=== PATIENT | female | born 1960 | race Caucasian/White ===

== ENCOUNTER 2016-04-28 14:32 | Emergency (ER) | payer OTHER ==
[2016-04-28] MEDS ORDERED: TETANUS/DIPHTHERIA/PERTUSSIS 0.5 ML SYRINGE IM ONE ×2 (14:49→15:48)
== END 2016-04-28 16:05 | disposition home or self-care (01) ==
DX: F43.20 Adjustment disorder, unspecified (principal); S51.812A Laceration without foreign body of left forearm, initial encounter; X78.9XXA Intentional self-harm by unspecified sharp object, initial encounter; M27.69 Other endosseous dental implant failure; I10 Essential (primary) hypertension; F32.9 Major depressive disorder, single episode, unspecified; F41.9 Anxiety disorder, unspecified; F17.200 Nicotine dependence, unspecified, uncomplicated; Z81.8 Family history of other mental and behavioral disorders

== ENCOUNTER 2016-06-26 20:08 | Outpatient (CLI) | payer OTHER | END 2016-06-26 20:09 | disposition EMS.NT | DX: Z03.89 Encounter for observation for other suspected diseases and conditions ruled out (principal) ==

== ENCOUNTER 2016-06-29 15:51 | Outpatient (CLI) | payer OTHER | END 2016-06-29 15:52 | disposition critical access hospital (66) | DX: R26.81 Unsteadiness on feet (principal); R47.81 Slurred speech; R53.83 Other fatigue; R41.0 Disorientation, unspecified | CPT/HCPCS: A0425; A0427 ==

== ENCOUNTER 2016-06-29 16:19 | Emergency (ER) | payer OTHER ==
[2016-06-29] MEDS ORDERED: SODIUM CHLORIDE 0.9% 1,000 ML IV ONE (16:47)
[2016-06-29] MEDS ORDERED: POTASSIUM CHLORIDE 20 MEQ TABLET PO STA (17:50)
[2016-06-29] MEDS ORDERED: POTASSIUM CHLORIDE 20 MEQ TABLET PO ONE (18:56)
[2016-06-29] MEDS ORDERED: OLANZapine 10 MG VIAL IM STA ×2 (19:33→22:38)
[2016-06-29] MEDS ORDERED: OLANZapine 10 MG VIAL IM ONE ×2 (19:38→22:57)
[2016-06-29] MEDS ORDERED: WATER FOR INJECTION,STERILE 10 ML ONE ×2 (19:38→22:57)
== END 2016-06-30 17:05 | disposition home or self-care (01) ==
DX: F43.0 Acute stress reaction (principal); F91.8 Other conduct disorders; I10 Essential (primary) hypertension; F17.200 Nicotine dependence, unspecified, uncomplicated
CPT/HCPCS: 70450; 80053; 80306; 80307; 80320; 80329; 83690; 84443; 85025; 85610; 93005; 93010; 96372; 99284; 99285; A9270

== ENCOUNTER 2016-07-02 11:49 | Outpatient (CLI) | payer OTHER | END 2016-07-02 11:50 | disposition critical access hospital (66) | DX: R45.851 Suicidal ideations (principal) | CPT/HCPCS: A0425; A0429 ==

== ENCOUNTER 2016-07-02 12:16 | Emergency (ER) | payer OTHER ==
--- NOTE | 2016-07-02 12:29 | ED Physician Documentation ---
History of Present Illness - Stated complaint Stated Complaint: MHE - Additonal information Additional information: hx is incredibly sparse and EMS just picked pt up from [facility] [place] police on the side of the road and pt is having active psychosis and cannot answer any questions as best i can determine she was here 06/29-06/30 for suicidal ideation and OD seen by SW and then DCR cleared and dced home per EMS police told EMS that the told police that the pt tried to kill herself by jumping out of the car on the way home from the ER 2 days ago and also tried to hang herself because the voices told her to and has had violent erratic behavior EMS brings in a bag of pill bottles many of which are empty and other if which have a variety of different pills in them - unable to verify which if these meds pt is presently taking pt denies [employer] AP and is not vomiting or coughing in the ER, no report of physical injury from EMS Review of Systems Unable to obtain: AMS, Uncooperative PD PAST MEDICAL HISTORY - Past Medical History Cardiovascular: Hypertension Psych: Depression, Anxiety Musculoskeletal: Chronic back pain, Other - Past Surgical History Past Surgical History: Yes 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, 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, Breast implants Neuro: Other - Present Medications Home Medications: Ambulatory Orders Medication Instructions Recorded Confirmed Sertraline HCl [Zoloft] 100 mg PO DAILY 11/27/13 04/28/16 Atenolol 50 mg PO DAILY 11/06/14 04/28/16 Zolpidem Tartrate 10 mg PO .QHS 11/06/14 04/28/16 Estradiol 0 mg PO DAILY 10/08/15 04/28/16 Progesterone,Micronized 0 mg PO DAILY 10/08/15 04/28/16 [Progesterone] Lorazepam [Ativan] 1 mg PO TID PRN 04/28/16 04/28/16 Meloxicam [Mobic] 7.5 mg PO BIDWM PRN #15 tablet 04/28/16 Penicillin V Potassium 500 mg PO QID #40 tablet 04/28/16 - Allergies Allergies/Adverse Reactions: Allergies Allergy/AdvReac Type Severity Reaction Status Date / Time No Known Drug Allergies Allergy Verified 04/28/16 14:57 - Social History Does the pt smoke?: Yes Smoking Status: Current some day smoker Does the pt drink ETOH?: No Does the pt have substance abuse?: No - Immunizations Immunizations are current?: Yes - POLST Patient has POLST: No PD ED PE NORMAL - General General: No: Alert and oriented X 3 (awake tells me her name is seeing and speaking to people who are not present) - HEENT HEENT: Atraumatic, PERRL - Neck Neck: Supple, no meningeal sign - Cardiac Cardiac: RRR, No murmur - Respiratory Respiratory: No respiratory distress, Clear bilaterally - Abdomen Abdomen: Soft, Non tender - Derm Derm: Normal color - Extremities Extremities: No deformity - Neuro Neuro: No motor deficit. No: Alert and oriented X 3 - Psych Psych: Other (appears to be actively psycotic with visual and auditory ) Results - Vitals Vitals: Vital Signs - 24 hr 07/02/16 07/02/16 07/02/16 12:17 14:00 14:35 Temperature 36.8 C Heart Rate 84 82 78 Respiratory 16 16 16 Rate Blood Pressure 136/91 H 135/86 H O2 Saturation 97 97 97 Oxygen O2 Source Room air - Labs Labs: Laboratory Tests 07/02/16 07/02/16 07/02/16 12:55 12:55 15:30 WBC 8.6 RBC 4.20 Hgb 13.7 Hct 38.3 MCV 91.2 MCH 32.6 H MCHC 35.7 RDW 12.8 Plt Count 170 MPV 8.3 Neut # 5.9 Lymph # 1.8 Hawkins # 0.7 Eos # 0.2 Baso # 0.0 Absolute Nucleated RBC 0.00 Nucleated RBCs 0.0 Sodium 140 Potassium 3.3 L Chloride 101 Carbon Dioxide 29 Anion Gap 10.0 BUN 13 Creatinine 0.8 Estimated GFR (MDRD) 74 L Glucose 136 H Calcium 9.2 Total Bilirubin 0.5 AST 103 H ALT 49 Alkaline Phosphatase 63 Total Protein 7.3 Albumin 4.6 Globulin 2.7 Albumin/Globulin Ratio 1.7 Lipase 34 Urine Color YELLOW Urine Clarity CLEAR Urine pH 6.5 Ur Specific Engelhard 1.020 Urine Protein NEGATIVE Urine Glucose (UA) NEGATIVE Urine Ketones TRACE Urine Occult Blood MODERATE H Urine Nitrite NEGATIVE Urine Bilirubin NEGATIVE Urine Urobilinogen 0.2 (NORMAL) Ur Leukocyte Esterase NEGATIVE Urine RBC 6-10 H Urine WBC 0-3 Ur Squamous Epith Cells MOD Squamous H Urine Bacteria Few Urine Mucus Few Strands Ur Microscopic Review INDICATED Urine Culture Comments NOT INDICATED Salicylates < 6.0 Urine Opiates Screen NEGATIVE Ur Oxycodone Screen NEGATIVE Urine Methadone Screen NEGATIVE Ur Propoxyphene Screen NEGATIVE Acetaminophen < 10 L Ur Barbiturates Screen NEGATIVE Ur Tricyclics Screen NEGATIVE Ur Phencyclidine Scrn NEGATIVE Ur Amphetamine Screen NEGATIVE U Methamphetamines Scrn NEGATIVE U Benzodiazepines Scrn NEGATIVE Urine Cocaine Screen NEGATIVE U Cannabinoids Screen NEGATIVE Ethyl Alcohol < 5.0 PD MEDICAL DECISION MAKING - ED course ED course: pt psychotic and agitated and would not stay in her room and was medicated with zyprexa for her safety - advised NATALY who was going to eval her prior to medication so she could see her before meds took effect pt was seepy for a while after the zyprexa but has recovered and is back to the way she was upon arrival - confused, apparently seeing hearing things, disoriented and uncooperative because she cannot follow commands also after the zyprexa pt was calm enough top be put on the heart monitor and she has a borderline prolonged QT though still < 1/2 R->R - would not recommend any further zyprexa for that reason in this state pt does not have the capacity to req or decline further care - she is not able to request voluntary mental health care because she is unable to make such a decision in this state, I feel she is gravely disabled and well as having had two recent suicide attempts since her dc form the ER two days ago , I believe she needs to be invol detained and receive much needed inpt psych care, NATALY Gonsalez called [facility] to have DCR dispatched 8 PM, pt being seen and evaluated by DCR - turned over to night EMP - advised to not give QT prolonging meds Departure - Departure Clinical Impression: Gravely disabled, Prolonged QT interval Psychosis Qualifiers: Psychosis type: other Qualified Code(s): F28 - Other psychotic disorder not due to a substance or known physiological condition Condition: Fair
[2016-07-02 13:01] LABS: BASOPHILS % (AUTO) 0.5 %; EOSINOPHILS # (AUTO) 0.2 10^3/uL (0.0-0.7); EOSINOPHILS % (AUTO) 1.8 %; HCT - HEMATOCRIT 38.3 % (37.0-47.0); HGB - HEMOGLOBIN 13.7 g/dL (12.0-16.0); LYMPHOCYTES # (AUTO) 1.8 10^3/uL (1.5-3.5); LYMPHOCYTES % (AUTO) 20.7 %; MEAN CORPUSCULAR HEMOGLOBIN 32.6 pg (27.0-31.0); MEAN CORPUSCULAR HGB CONC 35.7 g/dL (32.0-36.0); MEAN CORPUSCULAR VOLUME 91.2 fL (81.0-99.0); MEAN PLATELET VOLUME 8.3 fL (7.9-10.8); MONOCYTES # (AUTO) 0.7 10^3/uL (0.0-1.0); MONOCYTES % (AUTO) 8.1 %; NEUTROPHILS # (AUTO) 5.9 10^3/uL (1.5-6.6); NEUTROPHILS % (AUTO) 68.9 %; RED CELL DISTRIBUTION WIDTH 12.8 % (12.0-15.0); UNCORRECTED WHITE BLOOD COUNT 8.6 x10^3/uL; WHITE BLOOD COUNT 8.6 x10^3/uL (4.8-10.8)
[2016-07-02 13:18] LABS: ALBUMIN/GLOBULIN RATIO 1.7 (1.0-2.2); BILIRUBIN,TOTAL 0.5 mg/dL (0.2-1.0); BUN - BLOOD UREA NITROGEN 13 mg/dL (6-20); CALCIUM 9.2 mg/dL (8.5-10.3); CARBON DIOXIDE - CO2 29 mmol/L (21-32); CHLORIDE 101 mmol/L (101-111); CREATININE 0.8 mg/dL (0.4-1.0); GFR - MDRD 74 (>89); GLUCOSE 136 mg/dL (70-100); LIPASE 34 U/L (22-51); POTASSIUM 3.3 mmol/L (3.5-5.0); SALICYLATE < 6.0 mg/dL; SODIUM 140 mmol/L (135-145); TOTAL PROTEIN 7.3 g/dL (6.7-8.2)
[2016-07-02 13:19] LABS: ACETAMINOPHEN < 10 ug/mL (10-30)
[2016-07-02] MEDS ORDERED: OLANZapine ODT 5 MG TABLET TL ONE (13:30)
[2016-07-02] MEDS ORDERED: WATER FOR INJECTION,STERILE 10 ML ONE (13:33)
[2016-07-02] MEDS ORDERED: OLANZapine 10 MG VIAL IM ONE (13:33)
[2016-07-02] MEDS: OLANZapine ODT 5 MG TABLET TL ONE (13:39)
[2016-07-02] MEDS: OLANZapine 10 MG VIAL IM STA (13:39)
[2016-07-02 15:42] LABS: PH,URINE 6.5 PH (5.0-7.5)
[2016-07-02 15:46] LABS: UA w/ MICROSCOPIC CHARGE YES
[2016-07-02 15:47] LABS: BILIRUBIN,URINE NEGATIVE (NEGATIVE)
[2016-07-02 15:57] LABS: UR CULTURE IF IND NOT INDICATED; WBC,URINE 0-3 /HPF (0-5)
[2016-07-02 23:46] VITALS: BP 158/105
--- NOTE | 2016-07-02 23:54 | ED Physician Documentation ---
ED Addendum - Addendum Addendum: 07/02/16 23:53 Patient is a 55-year-old female with acute psychosis. She was evaluated by the [facility] Gloria Guevara and was placed on an involuntary hold. A bed was found at [facility] in [place]. Accepted by [facility] at 2340. COBRA forms filled out. This document was made in part using voice recognition software. While efforts are made to proofread this document, sound alike and grammatical errors may occur. 07/02/16 23:54 Departure - Departure Disposition: 02 Transfer Acute Care Hosp Clinical Impression: Gravely disabled, Prolonged QT interval Psychosis Qualifiers: Psychosis type: other Qualified Code(s): F28 - Other psychotic disorder not due to a substance or known physiological condition Condition: Fair
== END 2016-07-03 01:35 ==
LOC: EDUNIT# → ED 12:16
DX: F28 Other psychotic disorder not due to a substance or known physiological condition (principal); I45.81 Long QT syndrome; I10 Essential (primary) hypertension; F41.9 Anxiety disorder, unspecified; F17.200 Nicotine dependence, unspecified, uncomplicated
CPT/HCPCS: 36415; 80053; 80306; 80307; 80320; 80329; 81001; 81003; 83690; 85025; 87086; 96372; 99284; 99285

== ENCOUNTER 2016-07-03 01:34 | Outpatient (CLI) | payer OTHER | END 2016-07-03 01:35 | DX: R45.851 Suicidal ideations (principal) | CPT/HCPCS: A0425; A0428 ==

== ENCOUNTER 2016-07-28 13:13 | Outpatient (CLI) | payer OTHER ==
[2016-07-28 18:36] LABS: CHOL/HDL RATIO 4.1 (<4.4); CHOLESTEROL 244 mg/dL; HDL CHOLESTEROL 59 mg/dL; LDL/HDL RATIO 2.4 (<4.4); TRIGLYCERIDES 231 mg/dL; VLDL CHOLESTEROL 46 mg/dL
== END 2016-07-28 13:14 | disposition home or self-care (01) ==
LOC: LAB.F 13:13
PROVIDERS: ATTEND Internal Medicine
DX: E78.00 Pure hypercholesterolemia, unspecified (principal)
CPT/HCPCS: 36415; 80061

== ENCOUNTER 2016-09-04 14:15 | Outpatient (CLI) | payer OTHER ==
[2016-09-04 17:29] LABS: BASOPHILS % (AUTO) 0.4 %; EOSINOPHILS # (AUTO) 0.4 10^3/uL (0.0-0.7); EOSINOPHILS % (AUTO) 5.2 %; LYMPHOCYTES # (AUTO) 2.7 10^3/uL (1.5-3.5); LYMPHOCYTES % (AUTO) 37.1 %; MEAN CORPUSCULAR HEMOGLOBIN 32.7 pg (27.0-31.0); MEAN CORPUSCULAR HGB CONC 34.1 g/dL (32.0-36.0); MEAN PLATELET VOLUME 9.1 fL (7.9-10.8); MONOCYTES # (AUTO) 0.5 10^3/uL (0.0-1.0); MONOCYTES % (AUTO) 6.9 %; NEUTROPHILS # (AUTO) 3.7 10^3/uL (1.5-6.6); NEUTROPHILS % (AUTO) 50.4 %; RED BLOOD COUNT 4.27 10^6/uL (4.20-5.40); RED CELL DISTRIBUTION WIDTH 13.1 % (12.0-15.0); UNCORRECTED WHITE BLOOD COUNT 7.4 x10^3/uL; WHITE BLOOD COUNT 7.4 x10^3/uL (4.8-10.8)
[2016-09-04 17:43] LABS: ALBUMIN/GLOBULIN RATIO 1.5 (1.0-2.2); BILIRUBIN,TOTAL 0.3 mg/dL (0.2-1.0); BUN - BLOOD UREA NITROGEN 19 mg/dL (6-20); CALCIUM 9.2 mg/dL (8.5-10.3); CARBON DIOXIDE - CO2 25 mmol/L (21-32); CHLORIDE 106 mmol/L (101-111); CREATININE 0.7 mg/dL (0.4-1.0); GFR - MDRD 87 (>89); GLUCOSE 96 mg/dL (70-100); POTASSIUM 3.8 mmol/L (3.5-5.0); SODIUM 139 mmol/L (135-145); TOTAL PROTEIN 6.9 g/dL (6.7-8.2)
[2016-09-04 19:53] LABS: BILIRUBIN,URINE NEGATIVE (NEGATIVE); PH,URINE 5.5 PH (5.0-7.5)
[2016-09-04 20:07] LABS: UR CULTURE IF IND NOT INDICATED; WBC,URINE 0-3 /HPF (0-5)
== END 2016-09-04 14:16 | disposition home or self-care (01) ==
LOC: LAB.F 14:15
PROVIDERS: ATTEND Internal Medicine
DX: R10.9 Unspecified abdominal pain (principal)
CPT/HCPCS: 36415; 80053; 81001; 84443; 85025; 87086

== ENCOUNTER 2016-09-07 15:34 | Outpatient (CLI) | payer OTHER ==
--- NOTE | 2016-09-08 21:27 | Mammography Report ---
DIGITAL SCREENING MAMMOGRAM: (11/26/2015): CLINICAL INDICATION: A 55-year-old with history of bilateral implants for screening. COMPARISON: 05/2014, 05/2012, 01/2010. TECHNIQUE: Routine CC and MLO projections as well as bilateral implant displaced views were obtained of the breasts. The breasts again demonstrate heterogeneously dense fibroglandular parenchyma bilaterally. Bilateral subglandular silicone implants are present. A few coarse, typically benign calcifications are prese nt. There is new nodular hyperdense material extending superior and medial from the left implant, co mpatible with rupture and silicone extravasation. No suspicious masses, clustered microcalcification s, or regions of architectural distortion are identified. IMPRESSION: BENIGN FINDINGS. NEW LEFT IMPLANT RUPTURE WITH EXTRAVASATED SILICONE. RECOMMENDATION: ROUTINE ANNUAL SCREENING UNLESS OTHERWISE CLINICALLY INDICATED. PLASTIC SURGERY CON SULTATION. BIRADS CATEGORY: 2, BENIGN FINDINGS. STANDARD QUALIFYING STATEMENTS 1. This examination was reviewed with the aid of Computed-Aided Detection (CAD). 2. A negative or benign imaging report should not delay biopsy if clinically suspicious findings are present. Consider surgical consultation if warranted. More than 5% of cancers are not identified b y imaging. 3. Dense breasts may obscure an underlying neoplasm. JOB #: [id number] EXT JOB #:[id number]
== END 2016-09-07 15:35 | disposition home or self-care (01) ==
LOC: DI 15:34
PROVIDERS: ATTEND Internal Medicine
DX: Z12.31 Encounter for screening mammogram for malignant neoplasm of breast (principal); T85.43XA Leakage of breast prosthesis and implant, initial encounter; Z98.82 Breast implant status
CPT/HCPCS: 77067

== ENCOUNTER 2016-09-07 15:39 | Outpatient (CLI) | payer OTHER ==
--- NOTE | 2016-09-07 21:11 | XRAY Report ---
EXAM: CHEST RADIOGRAPHY EXAM DATE: 09/07/2016 04:53 PM. CLINICAL HISTORY: Abdominal pain and distention. Hematuria. COMPARISON: 01/06/2015. TECHNIQUE: 2 views. FINDINGS: Lungs/Pleura: No focal opacities evident. No pleural effusion. No pneumothorax. Normal volumes. Mediastinum: Heart and mediastinal contours are unremarkable. Other: No free air. No bony abnormality identified. IMPRESSION: Normal 2-view chest radiography. [facility] Referring Provider Line: [phone] SITE ID: [id number]
--- NOTE | 2016-09-07 21:11 | XRAY Report ---
EXAM: ABDOMINAL SERIES AND PA CHEST EXAM DATE: 09/07/2016 04:53 PM. CLINICAL HISTORY: Abdominal pain and distention. COMPARISON: None. TECHNIQUE: 2 views abdomen and 1 view chest. FINDINGS: CHEST: Lungs/Pleura: No focal opacities. No effusion or pneumothorax. Mediastinum: Within exam limitations, cardiomediastinal contour is normal. ABDOMEN: Bowel Gas Pattern: Within normal limits. No dilated loops or abnormal fluid levels. No excessive sto ol. Free Air: None. Other: Multiple pelvic clips noted. Degenerative changes of the symphysis pubis noted. Mild lumbar de xtroscoliosis with lower lumbar degenerative changes. IMPRESSION: No bowel obstruction, excessive stool, or free air. [facility] Referring Provider Line: [phone] SITE ID: [id number]
== END 2016-09-07 15:40 | disposition home or self-care (01) ==
LOC: DI 15:39
PROVIDERS: ATTEND Internal Medicine
DX: R06.00 Dyspnea, unspecified (principal); R14.0 Abdominal distension (gaseous); R10.9 Unspecified abdominal pain
CPT/HCPCS: 71020; 74022

== ENCOUNTER 2017-03-19 13:33 | Outpatient (CLI) | payer OTHER ==
--- NOTE | 2017-03-19 17:50 | XRAY Report ---
DATE OF SERVICE: 03/19/2017 THREE VIEW LEFT SHOULDER: 03/19/2017 CLINICAL INDICATION: Pain. FINDINGS: Frontal, oblique, scapular Y views of the left shoulder demonstrate mild degenerative changes of the acromioclavicular joint. There is no evidence of acute fracture or dislocation. No radiopaque foreign body is seen in the soft tissues. IMPRESSION: MILD DEGENERATIVE CHANGES OF THE ACROMIOCLAVICULAR JOINT. TD: 03/19/2017 18:50
== END 2017-03-19 13:34 | disposition home or self-care (01) ==
LOC: DI 13:33
PROVIDERS: ATTEND Physician Assistant Medical
DX: M19.012 Primary osteoarthritis, left shoulder (principal)

== ENCOUNTER 2017-04-05 09:03 | Outpatient (CLI) | payer OTHER ==
[~2017-04-05 09:03] MED LIST: GADOPENTETATE DIMEGLUMINE 5 ML VIAL IVP ONE; IOTHALAMATE MEGLUMINE 50 ML VIAL ONE
[2017-04-05] MEDS ORDERED: GADOPENTETATE DIMEGLUMINE 5 ML VIAL IVP ONE (09:55)
[2017-04-05] MEDS ORDERED: IOTHALAMATE MEGLUMINE 50 ML VIAL IVP ONE (09:55)
[2017-04-05] MEDS: BUFFERED LIDOCAINE 10 ML SYRINGE IU ONE (09:57)
--- NOTE | 2017-04-05 10:41 | XRAY Report ---
DATE OF SERVICE: 04/05/2017 FLUOROSCOPICALLY GUIDED INJECTION OF THE LEFT SHOULDER FOR MR ARTHROGRAM: 04/05 CLINICAL INDICATION: Shoulder pain. FINDINGS: Following obtaining informed consent, the patient's left shoulder was prepped and draped in the usual sterile fashion. The skin and soft tissues were anesthetized with lidocaine. A spinal needle was inserted into the left glenohumeral joint, and following confirmation of needle positioning, a combination of iodinated contrast, dilute gadolinium, and lidocaine was injected intraarticularly. The patient tolerated the procedure well. No immediate complications. Spot image reveals no evidence of contrast extravasation. IMPRESSION: SUCCESSFUL LEFT SHOULDER INJECTION FOR MR ARTHROGRAM. FLUOROSCOPY TIME: 39 SECONDS; 1 SPOT IMAGE OBTAINED. TD: 04/05/2017 10:36 YOGI
--- NOTE | 2017-04-05 12:55 | MRI Report ---
EXAM: LEFT SHOULDER MRI ARTHROGRAM WITH CONTRAST EXAM DATE: 04/05/2017 10:24 AM. CLINICAL HISTORY: Shoulder joint pain, left. COMPARISON: None. TECHNIQUE: Multiplanar, multisequence T1-weighted and fluid-sensitive sequences of the shoulder after an arthrographic injection of dilute gadolinium, dictated under a separate exam. Other: None. FINDINGS: Acromioclavicular Region: The acromion is type II. AC joint is moderately osteoarthritic. The coracoa cromial and coracoclavicular ligaments are intact. There is no contrast or fluid in the subacromial/s ubdeltoid bursa. Glenohumeral Region: No subluxation. No loose bodies. The articular cartilage is unremarkable. The gl enohumeral ligaments and joint capsule are unremarkable. Bone Marrow: No fracture, marrow edema or bone lesions. Labrum: Type II SLAP lesion. Series 502 image 40, series 701 images 10 and 11. Biceps Tendon: Long head biceps tendon is unremarkable. There is fluid and debris within the biceps t endon sheath. Musculature/Rotator Cuff: There is a punctate focal 95% partial thickness tear at the junction of the supraspinatus and infraspinatus. Series 901 image 3, series 701 image 10. Lesser intrasubstance unde rsurface partial thickness tearing also seen at the supraspinatus and anterior aspect of the infraspi natus. Teres minor and subscapularis appear unremarkable. No proximal muscular edema or fatty atrophy . Other: The subcutaneous tissues are unremarkable. IMPRESSION: 1. Type II unipartite undersurface osseous acromion shape. AC joint is moderately osteoarthritic. 2. Type II SLAP lesion at this appear lateral aspect of the biceps labral attachment. Long head of bi ceps proximally is unremarkable however there is some fluid and debris within the biceps tendon conway th which is typically indicative of moderately severe tenosynovitis. 3. There is a punctate focal area of 95% partial thickness tearing of the supraspinatus and infraspin atus. There is 50% undersurface tearing of the remaining supraspinatus and infraspinatus distally. No other cuff pathology. [facility] MUSCULOSKELETAL RADIOLOGY SECTION Referring Provider Line: [phone] SITE ID: [id number]
== END 2017-04-05 09:04 | disposition home or self-care (01) ==
LOC: DI 09:03
PROVIDERS: ATTEND Physician Assistant Medical
DX: M19.012 Primary osteoarthritis, left shoulder (principal); S43.432A Superior glenoid labrum lesion of left shoulder, initial encounter; M75.102 Unspecified rotator cuff tear or rupture of left shoulder, not specified as traumatic
CPT/HCPCS: 23350; 73222; 77002; Q9961

== ENCOUNTER 2017-12-16 07:51 | Outpatient (CLI) | payer OTHER ==
[2017-12-16 10:46] LABS: BASOPHILS % (AUTO) 0.5 %; EOSINOPHILS # (AUTO) 0.5 10^3/uL (0.0-0.7); EOSINOPHILS % (AUTO) 7.7 %; HGB - HEMOGLOBIN 13.9 g/dL (12.0-16.0); LYMPHOCYTES # (AUTO) 2.6 10^3/uL (1.5-3.5); LYMPHOCYTES % (AUTO) 36.4 %; MEAN CORPUSCULAR HGB CONC 34.4 g/dL (32.0-36.0); MEAN CORPUSCULAR VOLUME 93.2 fL (81.0-99.0); MEAN PLATELET VOLUME 8.6 fL (7.9-10.8); MONOCYTES # (AUTO) 0.5 10^3/uL (0.0-1.0); MONOCYTES % (AUTO) 7.1 %; NEUTROPHILS # (AUTO) 3.4 10^3/uL (1.5-6.6); NEUTROPHILS % (AUTO) 48.3 %; PLT - PLATELET COUNT 276 10^3/uL (130-450); RED BLOOD COUNT 4.33 10^6/uL (4.20-5.40); RED CELL DISTRIBUTION WIDTH 12.9 % (12.0-15.0); WHITE BLOOD COUNT 7.1 x10^3/uL (4.8-10.8)
[2017-12-16 10:48] LABS: ALBUMIN 4.4 g/dL (3.2-5.5); ALBUMIN/GLOBULIN RATIO 1.7 (1.0-2.2); ALKALINE PHOSPHATASE 56 IU/L (42-121); ALT ALANINE AMINOTRANSFERASE 27 IU/L (10-60); AST ASPARTATE AMINOTRANSFERASE 19 IU/L (10-42); BILIRUBIN,TOTAL 0.7 mg/dL (0.2-1.0); BUN - BLOOD UREA NITROGEN 17 mg/dL (6-20); CALCIUM 9.5 mg/dL (8.5-10.3); CARBON DIOXIDE - CO2 29 mmol/L (21-32); CHLORIDE 103 mmol/L (101-111); CHOL/HDL RATIO 2.8 (<4.4); CHOLESTEROL 204 mg/dL; CREATININE 0.8 mg/dL (0.4-1.0); GFR - MDRD 74 (>89); GLUCOSE 98 mg/dL (70-100); HDL CHOLESTEROL 72 mg/dL; LDL CHOLESTEROL,CALCULATED 99 mg/dL; LDL/HDL RATIO 1.4 (<4.4); SODIUM 140 mmol/L (135-145); VLDL CHOLESTEROL 33 mg/dL
== END 2017-12-16 07:52 | disposition home or self-care (01) ==
LOC: LAB.F 07:51
PROVIDERS: ATTEND Physician Assistant Medical
DX: Z00.00 Encounter for general adult medical examination without abnormal findings (principal); I10 Essential (primary) hypertension; Z13.89 Encounter for screening for other disorder; Z79.890 Hormone replacement therapy; Z13.29 Encounter for screening for other suspected endocrine disorder
CPT/HCPCS: 36415; 80053; 80061; 82670; 83721; 84443; 85025

== ENCOUNTER 2018-02-15 13:04 | Outpatient (CLI) | payer OTHER ==
[2018-02-15 17:50] LABS: ALBUMIN 4.8 g/dL (3.2-5.5); ALBUMIN/GLOBULIN RATIO 1.6 (1.0-2.2); ALKALINE PHOSPHATASE 75 IU/L (42-121); ALT ALANINE AMINOTRANSFERASE 57 IU/L (10-60); AST ASPARTATE AMINOTRANSFERASE 32 IU/L (10-42); BUN - BLOOD UREA NITROGEN 25 mg/dL (6-20); CALCIUM 9.6 mg/dL (8.5-10.3); CARBON DIOXIDE - CO2 29 mmol/L (21-32); CHLORIDE 99 mmol/L (101-111); CHOL/HDL RATIO 2.9 (<4.4); CHOLESTEROL 195 mg/dL; CREATININE 0.8 mg/dL (0.4-1.0); GFR - MDRD 74 (>89); GLUCOSE 93 mg/dL (70-100); HDL CHOLESTEROL 68 mg/dL; LDL CHOLESTEROL,CALCULATED 107 mg/dL; LDL/HDL RATIO 1.6 (<4.4); SODIUM 138 mmol/L (135-145); TOTAL PROTEIN 7.8 g/dL (6.7-8.2); VLDL CHOLESTEROL 20 mg/dL
[2018-02-15 17:52] LABS: HGB - HEMOGLOBIN 14.2 g/dL (12.0-16.0); MEAN CORPUSCULAR VOLUME 97.3 fL (81.0-99.0); RED BLOOD COUNT 4.31 10^6/uL (4.20-5.40); RED CELL DISTRIBUTION WIDTH 13.6 % (12.0-15.0); WHITE BLOOD COUNT 7.7 x10^3/uL (4.8-10.8)
== END 2018-02-15 13:05 | disposition home or self-care (01) ==
LOC: LAB.F 13:04
PROVIDERS: ATTEND Internal Medicine
DX: E78.00 Pure hypercholesterolemia, unspecified (principal); M19.90 Unspecified osteoarthritis, unspecified site
CPT/HCPCS: 36415; 80053; 80061; 83721; 85027

== ENCOUNTER 2020-05-10 09:59 | Outpatient (CLI) | payer OTHER ==
[2020-05-10 15:52] LABS: BASOPHILS # (AUTO) 0.1 10^3/uL (0.0-0.1); BASOPHILS % (AUTO) 0.9 %; EOSINOPHILS # (AUTO) 0.4 10^3/uL (0.0-0.7); EOSINOPHILS % (AUTO) 6.6 %; HCT - HEMATOCRIT 41.1 % (37.0-47.0); HGB - HEMOGLOBIN 13.7 g/dL (12.0-16.0); LYMPHOCYTES % (AUTO) 37.9 %; MEAN CORPUSCULAR HEMOGLOBIN 31.6 pg (27.0-31.0); MEAN CORPUSCULAR HGB CONC 33.3 g/dL (32.0-36.0); MEAN CORPUSCULAR VOLUME 94.7 fL (81.0-99.0); MEAN PLATELET VOLUME 10.4 fL (7.9-10.8); MONOCYTES # (AUTO) 0.4 10^3/uL (0.0-1.0); MONOCYTES % (AUTO) 6.8 %; NEUTROPHILS # (AUTO) 2.5 10^3/uL (1.5-6.6); NEUTROPHILS % (AUTO) 47.6 %; PLT - PLATELET COUNT 242 10^3/uL (130-450); RED BLOOD COUNT 4.34 10^6/uL (4.20-5.40); RED CELL DISTRIBUTION WIDTH 12.9 % (12.0-15.0); WHITE BLOOD COUNT 5.3 x10^3/uL (4.8-10.8)
[2020-05-10 16:28] LABS: ALBUMIN 4.2 g/dL (3.2-5.5); ALBUMIN/GLOBULIN RATIO 1.4 (1.0-2.2); ALKALINE PHOSPHATASE 100 IU/L (42-121); ALT ALANINE AMINOTRANSFERASE 117 IU/L (10-60); AST ASPARTATE AMINOTRANSFERASE 66 IU/L (10-42); BILIRUBIN,TOTAL 0.4 mg/dL (0.2-1.0); BUN - BLOOD UREA NITROGEN 14 mg/dL (6-20); CALCIUM 8.9 mg/dL (8.5-10.3); CARBON DIOXIDE - CO2 26 mmol/L (21-32); CHLORIDE 102 mmol/L (101-111); CHOL/HDL RATIO 4.2 (<4.4); CHOLESTEROL 270 mg/dL; CREATININE 0.9 mg/dL (0.4-1.0); GFR - MDRD 64 (>89); GLUCOSE 102 mg/dL (70-100); HDL CHOLESTEROL 64 mg/dL; LDL CHOLESTEROL,CALCULATED 165 mg/dL; LDL/HDL RATIO 2.6 (<4.4); POTASSIUM 4.2 mmol/L (3.5-5.0); SODIUM 135 mmol/L (135-145); TOTAL PROTEIN 7.2 g/dL (6.7-8.2); TRIGLYCERIDES 206 mg/dL; VLDL CHOLESTEROL 41 mg/dL
[2020-05-10 16:29] LABS: THYROID STIMULATING HORMONE 1.3 uIU/mL (0.34-5.60)
== END 2020-05-10 10:00 | disposition home or self-care (01) ==
LOC: LAB.S 09:59
PROVIDERS: ATTEND Physician Assistant
DX: E78.00 Pure hypercholesterolemia, unspecified (principal); Z12.11 Encounter for screening for malignant neoplasm of colon; I10 Essential (primary) hypertension; F41.9 Anxiety disorder, unspecified; F32.9 Major depressive disorder, single episode, unspecified
CPT/HCPCS: 36415; 80053; 80061; 83721; 84443; 85025

== ENCOUNTER 2020-05-24 13:13 | Outpatient (CLI) | payer OTHER | END 2020-05-24 13:14 | disposition home or self-care (01) | LOC: COV 13:13 | PROVIDERS: ATTEND Surgery | DX: Z01.812 Encounter for preprocedural laboratory examination (principal); K21.9 Gastro-esophageal reflux disease without esophagitis; Z15.09 Genetic susceptibility to other malignant neoplasm; F31.9 Bipolar disorder, unspecified; F41.0 Panic disorder [episodic paroxysmal anxiety]; Z20.822 Contact with and (suspected) exposure to COVID-19 ==

== ENCOUNTER 2020-05-28 06:11 | Day surgery (SDC) | payer OTHER ==
[2020-05-28] MEDS ORDERED: LACTATED RINGERS 1,000 ML IV ONE ×2 (06:29→08:23)
[2020-05-28] MEDS ORDERED: PROPOFOL 500 MG/50 ML 500 MG/50 ML VIAL ONE ×2 (07:08→08:00)
[2020-05-28] MEDS ORDERED: LIDOCAINE-MPF 2% 5 ML VIAL ONE (07:08)
[2020-05-28] MEDS ORDERED: LIDO GARGLE 30 ML BOTTLE ONE (07:18)
[2020-05-28] MEDS ORDERED: BENZOCAINE/TETRACAINE/BUTAMBEN 20 GM ONE (07:19)
[2020-05-28] MEDS ORDERED: ONDANSETRON 4 MG/2 ML VIAL IVP PRN (07:21)
[2020-05-28] MEDS ORDERED: ePHEDrine 50 MG/ML VIAL IVP PRN (07:21)
[2020-05-28] MEDS ORDERED: HYDROmorphone 0.5 MG/0.5 ML SYRINGE IVP PRN (07:21)
[2020-05-28] MEDS ORDERED: ATROPINE ABBOJECT 1 MG/10 ML SYRINGE IVP PRN (07:21)
[2020-05-28] MEDS ORDERED: METOCLOPRAMIDE 10 MG/2 ML VIAL IVP PRN (07:21)
[2020-05-28] MEDS ORDERED: MORPHINE 2 MG/ML CARPUJECT IVP PRN (07:21)
[2020-05-28] MEDS ORDERED: fentaNYL 100 MCG/2 ML VIAL IVP PRN (07:21)
[2020-05-28] MEDS ORDERED: NALOXONE 0.4 MG/ML VIAL IVP PRN (07:21)
--- NOTE | 2020-05-28 07:21 | ANESTHESIA ---
Pre-Anesthesia VS, & Labs - Diagnosis GERD - Procedure EGD, Colonoscopy Vital Signs: Temp Pulse Resp BP Pulse Ox 36.4 C L 66 16 132/91 H 99 05/28/20 06:29 05/28/20 06:29 05/28/20 06:29 05/28/20 06:29 05/28/20 06:29 Height: 5 ft 4 in Weight (kg): 66.2 kg Body Mass Index: 25.0 BMI Classification: Overweight - NPO >8 hours - Is Patient ?: No - Lab Results Lab results reviewed: Yes Home Medications and Allergies Home Medications: Ambulatory Orders Hydrochlorothiazide 12.5 mg PO DAILY PRN 05/23/20 Losartan Potassium 25 mg PO DAILY 05/23/20 Zolpidem Tartrate [Ambien] 10 mg PO QPM PRN 05/23/20 Alprazolam [Xanax] 0.5 - 1 mg PO BID PRN 08/06/19 QUEtiapine [SEROquel] 300 mg PO QPM 08/06/19 Venlafaxine ER [Effexor ER] 3 cap PO DAILY 08/06/19 Hydrochlorothiazide 12.5 mg PO DAILY PRN 05/23/20 Losartan Potassium 25 mg PO DAILY 05/23/20 Zolpidem Tartrate [Ambien] 10 mg PO QPM PRN 05/23/20 Allergies/Adverse Reactions: Allergies Allergy/AdvReac Type Severity Reaction Status Date / Time No Known Drug Allergies Allergy Verified 04/28/16 14:57 Anes History & Medical History - Anesthetic History Anesthesia Complications: reports: Post-Operative Nausea/Vomiting Family history of Anesthesia Complications: Denies Family history of Malignant Hyperthermia: Denies - Medical History Cardiovascular: reports: Hypertension Pulmonary: reports: Asthma Gastrointestinal: reports: GERD Urinary: Musculoskeletal: reports: Osteoarthritis Endocrine/Autoimmune: reports: None Skin: reports: Rosacea Smoking Status: Current some day smoker - Surgical History General: reports: Other Gynecologic: reports: Tubal ligation, 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, Breast implants Neurologic: reports: Other Orthopedic: reports: Other Exam General: Alert, Oriented x3, Cooperative, No acute distress Dental: WNL Mouth Openin Fingerbreadth Neck Mobility: Normal Mallampati classification: II Respiratory: Lungs clear, Normal breath sounds, No respiratory distress, No ac cessory muscle use Cardiovascular: Regular rate, Normal S1, Normal S2, No murmurs Plan Anesthesia Type: General, Total IV Consent for Procedure(s) Verified and Reviewed: Yes Code Status: Attempt Resuscitation ASA classification: 2-Mild systemic disease Is this case an emergency?: No
[2020-05-28] MEDS ORDERED: LIDO GARGLE 30 ML BOTTLE PO ONE (07:44)
[2020-05-28] MEDS ORDERED: BENZOCAINE/TETRACAINE/BUTAMBEN 20 GM TOP ONE (07:45)
[2020-05-28] MEDS ORDERED: LACTATED RINGERS 1,000 ML IV SCH (08:00)
[2020-05-28] MEDS ORDERED: ONDANSETRON 4 MG/2 ML VIAL ONE (08:00)
--- NOTE | 2020-05-28 08:24 | ANESTHESIA POST OP EVALUATION ---
Anesthesia Post Eval - Post Anesthesia Eval Vitals: Last Vital Signs Temp 36.4 C L 05/28/20 06:29 Pulse 66 05/28/20 06:29 Resp 16 05/28/20 06:29 BP 132/91 H 05/28/20 06:29 Pulse Ox 99 05/28/20 06:29 CV Function Including HR & BP: positive: Stable Pain Control: positive: Satisfactory Nausea & Vomiting: positive: Negative Mental Status: positive: Baseline Respiratory Status: Airway Patent Hydration Status: Satisfactory Anesthesia Complications: positive: None
[2020-05-28 08:59] VITALS: BP 128/78
== END 2020-05-28 06:12 | disposition home or self-care (01) ==
LOC: SDS 06:11
PROVIDERS: ATTEND Surgery
PROC: 0DB48ZX Excision of Esophagogastric Junction, Via Natural or Artificial Opening Endoscopic, Diagnostic (ICD-10-PCS; principal; 2020-05-28 07:30)
PROC: 0DBE8ZX Excision of Large Intestine, Via Natural or Artificial Opening Endoscopic, Diagnostic (ICD-10-PCS; 2020-05-28 07:30)
DX: K59.09 Other constipation (principal); K21.9 Gastro-esophageal reflux disease without esophagitis; K64.8 Other hemorrhoids; K62.89 Other specified diseases of anus and rectum; K63.89 Other specified diseases of intestine; I10 Essential (primary) hypertension; E78.5 Hyperlipidemia, unspecified; G40.909 Epilepsy, unspecified, not intractable, without status epilepticus; F41.9 Anxiety disorder, unspecified; G89.29 Other chronic pain; M54.9 Dorsalgia, unspecified; E66.3 Overweight; Z68.25 Body mass index [BMI] 25.0-25.9, adult; Z79.1 Long term (current) use of non-steroidal anti-inflammatories (NSAID); Z87.891 Personal history of nicotine dependence; Z83.71 Family history of colonic polyps
CPT/HCPCS: 43239; 45380; A9270; J7120

== ENCOUNTER 2021-07-05 19:06 | Emergency (ER) | payer OTHER ==
[2021-07-05 19:17] VITALS: BP 147/96
[2021-07-05] MEDS ORDERED: AMOX/CLAV 875 MG/125 MG TABLET PO STA (19:22)
--- NOTE | 2021-07-05 19:32 | ED Physician Documentation ---
PD HPI HEAD INJURY - Stated complaint Stated Complaint: DOG BITE TO UPPER LIP - Chief complaint Chief Complaint: Laceration - History obtained from History obtained from: Patient (She was playing with her dog and accidentally nipped to the upper lip just prior to arrival. 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, 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, Breast implants Neuro: Other - Present Medications Home Medications: Ambulatory Orders Medication Instructions Recorded Confirmed Alprazolam [Xanax] 0.5 - 1 mg PO BID PRN 08/06/19 05/23/20 QUEtiapine [SEROquel] 300 mg PO QPM 08/06/19 05/23/20 Venlafaxine ER [Effexor ER] 3 cap PO DAILY 08/06/19 05/23/20 Losartan Potassium 25 mg PO DAILY 05/23/20 05/23/20 Zolpidem Tartrate [Ambien] 10 mg PO QPM PRN 05/23/20 05/23/20 hydroCHLOROthiazide 12.5 mg PO DAILY PRN 05/23/20 05/23/20 [Hydrochlorothiazide] Amox/Clav 875/125 [Augmentin] 1 each PO Q12H #7 tablet 07/05/21 - Allergies Allergies/Adverse Reactions: Allergies Allergy/AdvReac Type Severity Reaction Status Date / Time No Known Drug Allergies Allergy Verified 07/05/21 19:17 - Social History Does the pt smoke?: Yes Smoking Status: Current some day smoker Does the pt drink ETOH?: No Does the pt have substance abuse?: No - Immunizations Immunizations are current?: Yes - POLST Patient has POLST: No PD ED PE NORMAL - Vitals Vital signs reviewed: Yes - General General: Alert and oriented X 3, No acute distress - HEENT HEENT: PERRL, EOMI, Other (1 cm mostly vertical but slightly jagged laceration above the upper lip, not involving the vermilion border. It is just into subcutaneous tissue. No loose teeth or through and through laceration. No facial bony tenderness.) - Neck Neck: No bony TTP - Neuro Neuro: Alert and oriented X 3, Normal speech - Psych Psych: Normal mood, Normal affect Results - Vitals Vitals: Vital Signs - 24 hr 07/05/21 19:12 Temperature 36.7 C Heart Rate 85 Respiratory 18 Rate Blood Pressure 147/96 H O2 Saturation 95 Oxygen O2 Source Room air Procedures - Laceration (location) upper lip Length in cm: 1 Wound type: Into subcut fat Wound preparation: Irrigated copiously NS Skin layer closure: Dermabond Other: Tetanus UTD PD MEDICAL DECISION MAKING - ED course ED course: Is fairly shallow and she really did not want sutures so glue was offered after extensive irrigation. Departure - Departure Disposition: 01 Home, Self Care Clinical Impression: Facial laceration Qualifiers: Encounter type: initial encounter Qualified Code(s): S01.81XA - Laceration without foreign body of other part of head, initial encounter Condition: Good Record reviewed to determine appropriate education?: Yes Instructions: ED Laceration Facial Skin Glue Prescriptions: Amox/Clav 875/125 [Augmentin] 1 each PO Q12H #7 tablet Comments: I sent the prescription for prophylactic antibiotics to [facility] in [place]. As discussed for the most part just leave the glue alone until it comes off, which take about a week. Soap and water is fine but avoid anything petroleum- based. After the glue comes off try to keep UV light off of it via high SPF sunscreen or staying out of the sunlight for several months. Once the glue is off you can use vitamin E ointment or other [id number] scar prevention.
== END 2021-07-05 19:42 | disposition home or self-care (01) ==
LOC: ED 19:06
DX: S01.511A Laceration without foreign body of lip, initial encounter (principal); W54.0XXA Bitten by dog, initial encounter; F17.200 Nicotine dependence, unspecified, uncomplicated
CPT/HCPCS: 12011; 99282; A9270

== ENCOUNTER 2021-08-28 17:12 | Emergency (ER) | payer OTHER ==
--- NOTE | 2021-08-28 17:46 | ED Physician Documentation ---
PD HPI HEAD INJURY - Stated complaint Stated Complaint: HEAD/LT SHLDR INJ - Chief complaint Chief Complaint: Trauma Hd/Nk - History obtained from History obtained from: Patient - Additional information Additional information: She has a history of rotator cuff issues in the left shoulder. Last night about 24 hours ago tripped over a dog gate and fell backwards hitting the left side of her head and her left shoulder with severe pain of both. No loss of consciousness. Severe headache. She has nausea but no vomiting. 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, Breast implants Neuro: Other - Present Medications Home Medications: Ambulatory Orders Medication Instructions Recorded Confirmed Alprazolam [Xanax] 0.5 - 1 mg PO BID PRN 08/06/19 07/05/21 QUEtiapine [SEROquel] 300 mg PO QPM 08/06/19 07/05/21 Venlafaxine ER [Effexor ER] 3 cap PO DAILY 08/06/19 07/05/21 Amox/Clav 875/125 [Augmentin] 1 each PO Q12H #7 tablet 07/05/21 Losartan/Hydrochlorothiazide 1 tab PO DAILY 07/05/21 07/05/21 [Losartan-Hctz 100-12.5 mg Tab] HYDROcod/ACETAM 5/325 [[place] 5/325] 1 - 2 tab PO Q6H PRN #15 tablet 08/28/21 - Allergies Allergies/Adverse Reactions: Allergies Allergy/AdvReac Type Severity Reaction Status Date / Time No Known Drug Allergies Allergy Verified 08/28/21 17:25 - Social History Does the pt smoke?: Yes Smoking Status: Current some day smoker Does the pt drink ETOH?: No Does the pt have substance abuse?: No - Immunizations Immunizations are current?: Yes - POLST Patient has POLST: No PD ED PE NORMAL - Vitals Vital signs reviewed: Yes - General General: Alert and oriented X 3, No acute distress - HEENT HEENT: PERRL, EOMI, Other (Tender to the left scalp without deformity, no neck tenderness.) - Neck Neck: No bony TTP - Extremities Extremities: Other (Mild tenderness of the left glenohumeral joint, passive range of motion not too painful but cannot range at all due to pain actively.) - Neuro Neuro: Alert and oriented X 3, Normal speech Eye Opening: Spontaneous Motor: Obeys Commands Verbal: Oriented GCS Score: 15 - Psych Psych: Normal mood, Normal affect Results - Vitals Vitals: Vital Signs - 24 hr 08/28/21 08/28/21 17:19 19:47 Temperature 36.8 C Heart Rate 70 51 L Respiratory 14 18 Rate Blood Pressure 106/84 H 142/87 H O2 Saturation 94 96 Oxygen O2 Source Room air - Labs Labs: Laboratory Tests 08/28/21 08/28/21 19:07 19:07 WBC 7.3 RBC 4.33 Hgb 13.6 Hct 38.9 MCV 89.8 MCH 31.4 H MCHC 35.0 RDW 11.9 L Plt Count 262 MPV 9.7 Neut # (Auto) 3.4 Lymph # (Auto) 2.8 [place] # (Auto) 0.7 Eos # (Auto) 0.4 Baso # (Auto) 0.0 Absolute Nucleated RBC 0.00 Nucleated RBC % 0.0 Sodium 137 Potassium 4.0 Chloride 100 L Carbon Dioxide 27 Anion Gap 10.0 BUN 14 Creatinine 0.9 Estimated GFR (MDRD) 64 L Glucose 98 Calcium 8.9 PD MEDICAL DECISION MAKING - ED course ED course: She presents with a head injury, severe headache and shoulder pain. Possible fracture of the humeral head on x-ray and followed with CT which was confirmatory. Placed in a sling for that and advised on Ortho follow-up and pain control. The CT of the head was normal with the exception of concern for parotid mass and this was followed with a soft tissue neck CT with IV contrast per radiologist recommendations showing probably just asymmetric enlargement of the parotid without mass. Her was in the room and looked at her and did not feel like he noticed any new swelling of the right side of the face. Follow-up was advised. Departure - Departure Disposition: 01 Home, Self Care Clinical Impression: Humeral head fracture, Parotid gland enlargement, Head injury Condition: Good Record reviewed to determine appropriate education?: Yes Instructions: ED Fx Shoulder Follow-Up: Orthopedic Care [Provider Group] Prescriptions: HYDROcod/ACETAM 5/325 [[place] 5/325] 1 - 2 tab PO Q6H PRN #15 tablet PRN Reason: Pain Comments: You were seen today for head injury, CT of the head was unremarkable was concerning for right parotid enlargement and this was followed by CT of the neck which suggested it was probably a normal variant. Have your doctor keep an eye on it. You did have a humeral head fracture. For that a sling And pain medication and follow-up with orthopedics is the plan. I sent your prescription electronically to [facility] in [place]. I am prescribing a short course of narcotic pain medication for you. These are potentially dangerous and addictive medications that should be used carefully. These medications may constipate you. Take an umqg-[id number] stool softener (docusate) twice daily with plenty of water while taking these medications. If you go 24 hours without a bowel movement, take lltd-[id number] miralax, per package instructions. Do not drink or drive while taking these medications. If you received narcotic or sedating medications while in the emergency department, do not drive for 24 hours. Store this medication in a safe, secure place and out of reach of children. It is a violation of federal law to give or sell this medication to another person or to use in a manner other than prescribed. The ED will not refill narcotic prescriptions, including prescriptions lost or stolen. To dispose of unwanted medications: 1. [facility] at [address] in [place] has a medication drop box. They accept prescription medications (in pill form) Wednesday through Wednesday 9:00 a.m. to 5:00 p.m. 2. The [facility] [employer] accepts prescription medications (in pill form only) for disposal year round. Call for more information. 3. Contact the [facility] for the next [facility] sponsored prescription drug collection event. , [phone], or [phone]; Note that many narcotic pain relievers also contain Tylenol/acetaminophen. Please ensure that your total dose of acetaminophen from all sources does not exceed 3 g (3000 mg) per day.
[2021-08-28] MEDS ORDERED: HYDROcod/ACETAM 5/325 MG TABLET PO STA (17:53)
--- NOTE | 2021-08-28 18:22 | XRAY Report ---
PROCEDURE: Shoulder 3 View LT INDICATIONS: shoulder inj TECHNIQUE: 3 views of the shoulder were acquired. COMPARISON: None. FINDINGS: Bones: Question nondisplaced humeral head fracture. The humeral joint degenerative change. No suspici ous bony lesions. Visualized ribs appear intact. Soft tissues: No suspicious soft tissue calcifications. IMPRESSION: Question nondisplaced humeral head fracture. Comment: Consider CT shoulder. Reviewed by: Antonio Botello MD on 08/28/2021 6:20 PM PDT Approved by: Antonio Botello MD on 08/28/2021 6:20 PM PDT Station ID: [id number]
--- NOTE | 2021-08-28 18:56 | CT Report ---
PROCEDURE: HEAD WO INDICATIONS: head inj TECHNIQUE: Noncontrast 4.5 mm thick angled axial sections acquired from the foramen magnum to the vertex. For r adiation dose reduction, the following was used: automated exposure control, adjustment of mA and/or kV according to patient size. COMPARISON: 06/30/2016. FINDINGS: Image quality: Excellent. CSF spaces: Basal cisterns are patent. No extra-axial fluid collections. Ventricles are normal in size and shape. Brain: No midline shift. No intracranial masses or hemorrhage. Gómez-white matter interface is norm al. Skull and face: Calvarium and visualized facial bones are intact, without suspicious lesions. Sinuses: Visualized sinuses and mastoids are clear. Miscellaneous: The region of the right parotid, just inferior to the right ear, is visualized. The le ft parotid is not included on the study. There is a question of a diffuse infiltrative right parotid mass. IMPRESSION: 1. No evidence of acute intracranial process. 2. Question infiltrative right parotid mass. Above discussed with Charli Lawrence MD at the time of dictation. Current plans are to correlate w ith clinical exam. Reviewed by: Antonio Botello MD on 08/28/2021 6:55 PM PDT Approved by: Antonio Botello MD on 08/28/2021 6:55 PM PDT Station ID: [id number]
[2021-08-28] MEDS ORDERED: HYDROmorphone 1 MG/ML CARPUJECT IVP STA (19:01)
[2021-08-28 19:18] LABS: BASOPHILS % (AUTO) 0.5 %; EOSINOPHILS # (AUTO) 0.4 10^3/uL (0.0-0.7); EOSINOPHILS % (AUTO) 4.8 %; HCT - HEMATOCRIT 38.9 % (37.0-47.0); HGB - HEMOGLOBIN 13.6 g/dL (12.0-16.0); LYMPHOCYTES # (AUTO) 2.8 10^3/uL (1.5-3.5); MEAN CORPUSCULAR HEMOGLOBIN 31.4 pg (27.0-31.0); MEAN CORPUSCULAR VOLUME 89.8 fL (81.0-99.0); MEAN PLATELET VOLUME 9.7 fL (7.9-10.8); MONOCYTES # (AUTO) 0.7 10^3/uL (0.0-1.0); MONOCYTES % (AUTO) 9.9 %; NEUTROPHILS # (AUTO) 3.4 10^3/uL (1.5-6.6); NEUTROPHILS % (AUTO) 46.7 %; PLT - PLATELET COUNT 262 10^3/uL (130-450); RED BLOOD COUNT 4.33 10^6/uL (4.20-5.40); RED CELL DISTRIBUTION WIDTH 11.9 % (12.0-15.0); WHITE BLOOD COUNT 7.3 x10^3/uL (4.8-10.8)
[2021-08-28 19:24] LABS: CALCIUM 8.9 mg/dL (8.5-10.3); CREATININE 0.9 mg/dL (0.4-1.0)
[2021-08-28] MEDS ORDERED: iohexoL-300 100 ML VIAL ONE (19:41)
[2021-08-28 19:47] VITALS: BP 142/87
[2021-08-28] MEDS ORDERED: iohexoL-300 100 ML VIAL IVP ONE (20:19)
--- NOTE | 2021-08-28 20:39 | CT Report ---
PROCEDURE: SOFT TISSUE NECK W INDICATIONS: Neck mass per radiology CONTRAST: IV CONTRAST: Isovue 300 ml: 100 PO CONTRAST: *NO PO CONTRAST TECHNIQUE: After the administration of intravenous contrast, 3.0 mm axial sections acquired from the sella to th e aortic arch. Additional oblique axial 3.0 mm sections acquired through the pharynx. 3 mm thick co danya reformats were generated. For radiation dose reduction, the following was used: automated exp osure control, adjustment of mA and/or kV according to patient size. COMPARISON: None. FINDINGS: Image quality: Excellent. Lymph nodes: No enlarged lymph nodes seen throughout the neck. Vessels: Visualized vasculature appears patent. Neck spaces: The oropharynx, nasopharynx, and pharynx demonstrate no mucosal lesions. The vocal cor ds, false vocal cords, pyriform sinuses, epiglottis, vallecula, and tongue base all appear normal. E xtramucosal spaces appear unremarkable. Glands: The right parotid gland demonstrates minimal asymmetric enlargement compared to the left wit hout a discrete mass identified. No associated fat stranding or dilated ducts. The submandibular glan ds appear normal. The thyroid is mildly heterogeneous in appearance without a focal dominant nodule. Miscellaneous: Visualized brain and orbits appear normal. Lung apices appear clear. Superficial so ft tissues appear normal. Bones: No suspicious bony lesions. Visualized sinuses and mastoids appear unremarkable. IMPRESSION: 1. Minimal asymmetric enlargement of the right parotid gland without a discrete mass identified. The findings likely represent normal variation and the prominent appearance on recent CT was likely due t o head positioning. Recommend clinical follow-up to exclude a mild parotiditis. Reviewed by: Pro Green MD on 08/28/2021 8:37 PM PDT Approved by: Pro Green MD on 08/28/2021 8:37 PM PDT Station ID: [id number]
--- NOTE | 2021-08-28 20:43 | CT Report ---
PROCEDURE: UPPER EXTREMITY WO - LT INDICATIONS: abd xr TECHNIQUE: Noncontrast 1 mm axial sections acquired of the left shoulder, with coronal and sagittal reformats. For radiation dose reduction, the following was used: automated exposure control, adjustment of mA a nd/or kV according to patient size. COMPARISON: None. FINDINGS: Image quality: Excellent. Bones: There is a minimally displaced fracture of the greater tuberosity of the humeral head. The fi ndings are suggestive of an avulsion fracture at the insertion of the supraspinatus. There is mild gl enohumeral and acromioclavicular joint degeneration. Soft tissues: No glenohumeral joint effusion. There is mild periarticular soft tissue edema. The vis ualized osseous structures demonstrates preserved bulk. Limited evaluation of the rotator cuff and st raight no definite full-thickness tear. IMPRESSION: 1. Minimally displaced fracture of the greater tuberosity of the humeral head suggestive of an avulsi on fracture. Reviewed by: Pro Green MD on 08/28/2021 8:42 PM PDT Approved by: Pro Green MD on 08/28/2021 8:42 PM PDT Station ID: [id number]
[2021-08-28] MEDS ORDERED: HYDROcod/ACET 5/325 Prepack 4 PO STA (20:47)
== END 2021-08-28 21:15 | disposition home or self-care (01) ==
LOC: ED 17:12
DX: S09.90XA Unspecified injury of head, initial encounter (principal); S42.302A Unspecified fracture of shaft of humerus, left arm, initial encounter for closed fracture; W01.0XXA Fall on same level from slipping, tripping and stumbling without subsequent striking against object, initial encounter; K11.1 Hypertrophy of salivary gland; F17.200 Nicotine dependence, unspecified, uncomplicated
CPT/HCPCS: 36415; 70450; 70491; 73030; 73200; 80048; 85025; 96374; 99284; A9270; J1170; Q9967

== ENCOUNTER 2021-09-05 08:00 | Outpatient (CLI) | payer OTHER ==
--- NOTE | 2021-09-05 17:14 | XRAY Report ---
PROCEDURE: Shoulder 3 View LT INDICATIONS: SHOULDER FX TECHNIQUE: 4 views of the shoulder were acquired. COMPARISON: CT left shoulder 08/29/2019. FINDINGS: Bones: There is a minimally displaced fracture at the greater tuberosity of the humerus. Portions of the lucent fracture line are still visualized . The remaining visualized osseous structures are intac t. No suspicious bony lesions. Visualized ribs appear intact. Soft tissues: No suspicious soft tissue calcifications. IMPRESSION: Minimally displaced fracture of the greater tuberosity of the humerus is redemonstrated with unchanged alignment. Reviewed by: Karson Alcazar MD on 09/05/2021 5:13 PM PDT Approved by: Karson Alcazar MD on 09/05/2021 5:13 PM PDT Station ID: [id number]
== END 2021-09-05 23:59 | disposition home or self-care (01) ==
LOC: DI.WOS 08:00
PROVIDERS: ATTEND Physician Assistant
DX: S42.252A Displaced fracture of greater tuberosity of left humerus, initial encounter for closed fracture (principal)

== ENCOUNTER 2021-09-23 11:00 | Outpatient (CLI) | payer OTHER ==
--- NOTE | 2021-09-23 16:53 | XRAY Report ---
PROCEDURE: Shoulder 3 View LT INDICATIONS: LEFT SHOULDER FX TECHNIQUE: 3 views of the shoulder were acquired. COMPARISON: X-ray shoulder 09/05/2021. FINDINGS: Bones: There is a mildly displaced comminuted fracture of the greater humeral tuberosity. Alignment i s stable. No suspicious bony lesions. Visualized ribs appear intact. Soft tissues: No suspicious soft tissue calcifications. IMPRESSION: Mildly displaced greater humeral tuberosity fracture, stable compared to prior exam. Reviewed by: Sandra Manley MD on 09/23/2021 4:52 PM PDT Approved by: Sandra Manley MD on 09/23/2021 4:52 PM PDT Station ID: [id number]
== END 2021-09-23 23:59 | disposition home or self-care (01) ==
LOC: DI.WOS 11:00
PROVIDERS: ATTEND Physician Assistant
DX: S42.252D Displaced fracture of greater tuberosity of left humerus, subsequent encounter for fracture with routine healing (principal)

== ENCOUNTER 2022-04-14 11:31 | Outpatient (CLI) | payer OTHER | END 2022-04-14 11:32 | disposition critical access hospital (66) | LOC: EMS 11:31 | DX: R55 Syncope and collapse (principal); R63.8 Other symptoms and signs concerning food and fluid intake; I95.9 Hypotension, unspecified | CPT/HCPCS: A0425; A0429 ==

== ENCOUNTER 2022-04-14 12:06 | Emergency (ER) | payer OTHER ==
[2022-04-14] MEDS ORDERED: SODIUM CHLORIDE 0.9% 1,000 ML IV STA ×2 (12:22→14:29)
[2022-04-14] MEDS ORDERED: ONDANSETRON 4 MG/2 ML VIAL IVP STA (12:22)
--- NOTE | 2022-04-14 12:26 | ED Physician Documentation ---
History of Present Illness - Stated complaint Stated Complaint: FLU LIKE SYMP - History obtained from History obtained from: Patient, EMS - Additonal information Additional information: The patient comes to the emergency department via EMS for chief complaint of "I felt like I was going to this morning". The patient states she has had "flulike symptoms" for the last 3 weeks. She states that she started with itchy skin in her epigastric area and there is a little rash. She states she also "could not breathe" but x-rays at the time that were done in the urgent care were negative. She called her primary doctor's office and they sent in a prescription for an inhaler for her. The patient states she was not seen by her primary care physician and that she had asthma as a child and her son has it but that she personally does not generally have asthma symptoms. She is not a smoker. The patient states that she has not measured any fevers. She occasionally feels cold and she has some body aches. She denies a cough or rhinorrhea. She does have a sore throat. She states about 10 days ago, she began to feel as though she just "could not swallow anything" and that if she tried to take water or food, it would just come back up. She does admit to being nauseated, but states that the regurgitation feel like vomiting. The patient states she has been getting progressively weaker since then and that this morning, her had to carry her. Medics state that when they picked her up, her blood pressure systolic was in the 70s. They gave her half a liter of fluid on the way here and she has improved to a systolic of over 100. The patient states she was convinced that she had COVID when her symptoms started and she has just been waiting for her COVID to go away but it has not. She also states she is pretty sure she has sepsis because she read about the symptoms online. The patient states that her other concern is that she cannot come up with words and feels like she cannot speak a proper sentence. No other neurologic symptoms. No other complaints at this time. 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 Neuro: Other - Present Medications Home Medications: Ambulatory Orders Medication Instructions Recorded Confirmed Alprazolam [Xanax] 0.5 - 1 mg PO BID PRN 08/06/19 07/05/21 QUEtiapine [SEROquel] 300 mg PO QPM 08/06/19 07/05/21 Venlafaxine ER [Effexor ER] 3 cap PO DAILY 08/06/19 07/05/21 Amox/Clav 875/125 [Augmentin] 1 each PO Q12H #7 tablet 07/05/21 Losartan/Hydrochlorothiazide 1 tab PO DAILY 07/05/21 07/05/21 [Losartan-Hctz 100-12.5 mg Tab] HYDROcod/ACETAM 5/325 [[place] 5/325] 1 - 2 tab PO Q6H PRN #15 tablet 08/28/21 Ondansetron Odt [Zofran] 4 mg TL Q6H PRN #10 tablet 04/14/22 - Allergies Allergies/Adverse Reactions: Allergies Allergy/AdvReac Type Severity Reaction Status Date / Time No Known Drug Allergies Allergy Verified 08/28/21 17:25 - Social History Does the pt smoke?: Yes Smoking Status: Current some day smoker Does the pt drink ETOH?: No Does the pt have substance abuse?: No - Immunizations Immunizations are current?: Yes - POLST Patient has POLST: No PD ED PE NORMAL - Vitals Vital signs reviewed: Yes - General General: Alert and oriented X 3, No acute distress, Well developed/nourished, Other (Well-appearing patient, sitting up on the edge of bed, speaking clearly, in no apparent distress.) - HEENT HEENT: Atraumatic, PERRL, EOMI, Moist mucous membranes, Pharynx benign - Neck Neck: Supple, no meningeal sign, No adenopathy - Cardiac Cardiac: RRR, No murmur, Strong equal pulses - Respiratory Respiratory: No respiratory distress, Clear bilaterally - Abdomen Abdomen: Soft, Non tender, Non distended - Derm Derm: Normal color, Warm and dry, No rash - Extremities Extremities: No deformity - Neuro Neuro: Alert and oriented X 3, 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 No objective aphasia of any kind. She was moving all 4 extremities without difficulty and is able to execute all movements without incoordination or obvious compensation.) - Psych Psych: Normal mood, Normal affect Results - Vitals Vitals: Oxygen O2 Source Room air - EKG (time done) 1203 Rate: Rate (enter#) (86) Rhythm: NSR [place]: Normal Intervals: Normal IL QRS: Normal Ischemia: Normal ST segments Compare to prior EKG: Old EKG unavailable Computer interpretation: Agree with computer - Labs Labs: Laboratory Tests 04/14/22 04/14/22 04/14/22 12:34 12:34 12:34 WBC 6.7 RBC 4.27 Hgb 13.1 Hct 37.7 MCV 88.3 MCH 30.7 MCHC 34.7 RDW 12.6 Plt Count 209 MPV 9.6 Neut # (Auto) 5.5 Lymph # (Auto) 0.7 L [place] # (Auto) 0.4 Eos # (Auto) 0.1 Baso # (Auto) 0.0 Absolute Nucleated RBC 0.00 Nucleated RBC % 0.0 Sodium 137 Potassium 3.1 L Chloride 104 Carbon Dioxide 23 Anion Gap 10.0 BUN 38 H Creatinine 1.6 H Estimated GFR (MDRD) 33 L Glucose 142 H Calcium 8.5 Total Bilirubin 1.9 H AST > 5200 H ALT > 5200 H Alkaline Phosphatase 95 Total Protein 6.4 L Albumin 3.5 Globulin 2.9 Albumin/Globulin Ratio 1.2 Lipase 69 H Urine Color Urine Clarity Urine pH Ur Specific [place] Urine Protein Urine Glucose (UA) Urine Ketones Urine Occult Blood Urine Nitrite Urine Bilirubin Urine Urobilinogen Ur Leukocyte Esterase Urine RBC Urine WBC Ur Squamous Epith Cells Amorphous Sediment Urine Bacteria Ur Microscopic Review Urine Culture Comments Nasal Adenovirus (PCR) Nasal B. parapertussis DNA (PCR) Nasal Coronavir 229E PCR Nasal Coronavir HKU1 PCR Nasal Coronavir NL63 PCR Nasal Coronavir OC43 PCR Nasal Enterovir/Rhinovir PCR Nasal Influenza B PCR Nasal Influenza A PCR Nasal Parainfluen 1 PCR Nasal Parainfluen 2 PCR Nasal Parainfluen 3 PCR Nasal Parainfluen 4 PCR Nasal RSV (PCR) Nasal B.pertussis DNA PCR Nasal C.pneumoniae (PCR) [place] Human Metapneumo PCR Nasal M.pneumoniae (PCR) Nasal SARS-CoV-2 (PCR) Ethyl Alcohol Hepatitis A IgM Ab Negative Hep Bs Antigen Negative Hep B Core IgM Ab Negative Hepatitis C Antibody Non Reactive Hepatitis C Interp Comment 04/14/22 04/14/22 04/14/22 12:34 13:02 14:46 WBC RBC Hgb Hct MCV MCH MCHC RDW Plt Count MPV Neut # (Auto) Lymph # (Auto) [place] # (Auto) Eos # (Auto) Baso # (Auto) Absolute Nucleated RBC Nucleated RBC % Sodium Potassium Chloride Carbon Dioxide Anion Gap BUN Creatinine Estimated GFR (MDRD) Glucose Calcium Total Bilirubin AST ALT Alkaline Phosphatase Total Protein Albumin Globulin Albumin/Globulin Ratio Lipase Urine Color DARK YELLOW Urine Clarity HAZY Urine pH 6.0 Ur Specific [place] >=1.030 H Urine Protein 100 H Urine Glucose (UA) NEGATIVE Urine Ketones TRACE Urine Occult Blood SMALL H Urine Nitrite NEGATIVE Urine Bilirubin NEGATIVE Urine Urobilinogen 4 H Ur Leukocyte Esterase NEGATIVE Urine RBC 0-5 Urine WBC 4-5 Ur Squamous Epith Cells MANY Squamous H Amorphous Sediment Few Urine Bacteria Many H Ur Microscopic Review INDICATED Urine Culture Comments NOT INDICATED Nasal Adenovirus (PCR) NOT DETECTED Nasal B. parapertussis DNA (PCR) NOT DETECTED Nasal Coronavir 229E PCR NOT DETECTED Nasal Coronavir HKU1 PCR NOT DETECTED Nasal Coronavir NL63 PCR NOT DETECTED Nasal Coronavir OC43 PCR NOT DETECTED Nasal Enterovir/Rhinovir PCR NOT DETECTED Nasal Influenza B PCR NOT DETECTED Nasal Influenza A PCR NOT DETECTED Nasal Parainfluen 1 PCR NOT DETECTED Nasal Parainfluen 2 PCR NOT DETECTED Nasal Parainfluen 3 PCR NOT DETECTED Nasal Parainfluen 4 PCR NOT DETECTED Nasal RSV (PCR) NOT DETECTED Nasal B.pertussis DNA PCR NOT DETECTED Nasal C.pneumoniae (PCR) NOT DETECTED [place] Human Metapneumo PCR NOT DETECTED Nasal M.pneumoniae (PCR) NOT DETECTED Nasal SARS-CoV-2 (PCR) NOT DETECTED Ethyl Alcohol < 5.0 Hepatitis A IgM Ab Hep Bs Antigen Hep B Core IgM Ab Hepatitis C Antibody Hepatitis C Interp - Rads (name of study) Abdominal ultrasound Radiology: Final report received, See rad report (Hepatic steatosis otherwise no acute findings.) Chest x-ray Radiology: Final report received, See rad report (No acute findings) PD Medical Decision Making - ED course Complexity details: reviewed results, re-evaluated patient, considered differential, d/w patient ED course: The patient was actually quite well-appearing in the emergency department. I discussed with her that her symptoms could be due to any 1 of a number of viruses and that she does not necessarily have COVID, and should not make any assumptions about what she does or does not have. As far as the concern over sepsis, patient's vital signs are completely normal here and I have discussed this with her. I have ordered work-up including CBC, ER abdominal panel, respiratory PCR, and chest x-ray. The patient is continued on IV fluids and will receive a total of 2 Liter boluses of normal saline initially. I reviewed all of the above ordered tests, and found of significance that the patient's AST and ALT were both markedly elevated. However, the remainder of her work-up was negative. I ordered a right upper quadrant ultrasound of the abdomen, and this showed hepatic steatosis but no other findings of significance. I also added a hepatitis panel to the patient's labs, but this will not come back right away. I discussed with the patient the findings on her work-up. Her was present with her and I spoke with both of them. The patient was feeling quite a bit better and ready to go home. I advised her that she will need to follow-up make sure that her LFTs are normalizing and if the are not, then her primary doctor will need to determine further management and work-up for her. I have prescribed Zofran for her. We have discussed the usual indications for return. Departure - Departure Disposition: 01 Home, Self Care Clinical Impression: Viral syndrome, Transaminitis Condition: Stable Instructions: ED Viral Syndrome Prescriptions: Ondansetron Odt [Zofran] 4 mg TL Q6H PRN #10 tablet PRN Reason: Nausea / Vomiting Comments: Your labs overall look fairly good except that 2 of your liver enzymes were very elevated. This could be due to the illness that you have had, but we have sent hepatitis panel which will come back later. Your ultrasound does not show any liver abnormalities in particular and your gallbladder looks good. A prescription for nausea medicine has been electronically transmitted to the [facility] in [place] at your request. We will let you know if any of your hepatitis panel comes back positive but you may also monitor for your results from home, as well. You may do this by going to our hospital website at [email or web address], clicking on the "my [employer]" tab, and signing up for the patient portal. Please take the nausea medicine as needed and be sure to get plenty of clear liquids to drink. You may do this in the form of water, electrolyte solution, pop, or even popsicles. Please avoid anything caffeinated, which will cause you to urinate more and become more dehydrated. Discharge Date/Time: 04/14/22 17:35
[2022-04-14 12:41] LABS: BASOPHILS % (AUTO) 0.3 %; EOSINOPHILS # (AUTO) 0.1 10^3/uL (0.0-0.7); EOSINOPHILS % (AUTO) 1.5 %; HCT - HEMATOCRIT 37.7 % (37.0-47.0); HGB - HEMOGLOBIN 13.1 g/dL (12.0-16.0); LYMPHOCYTES # (AUTO) 0.7 10^3/uL (1.5-3.5); LYMPHOCYTES % (AUTO) 10.6 %; MEAN CORPUSCULAR HEMOGLOBIN 30.7 pg (27.0-31.0); MEAN CORPUSCULAR HGB CONC 34.7 g/dL (32.0-36.0); MEAN CORPUSCULAR VOLUME 88.3 fL (81.0-99.0); MEAN PLATELET VOLUME 9.6 fL (7.9-10.8); MONOCYTES # (AUTO) 0.4 10^3/uL (0.0-1.0); MONOCYTES % (AUTO) 5.2 %; NEUTROPHILS # (AUTO) 5.5 10^3/uL (1.5-6.6); PLT - PLATELET COUNT 209 10^3/uL (130-450); RED BLOOD COUNT 4.27 10^6/uL (4.20-5.40); RED CELL DISTRIBUTION WIDTH 12.6 % (12.0-15.0); WHITE BLOOD COUNT 6.7 x10^3/uL (4.8-10.8)
[2022-04-14 13:22] LABS: ALBUMIN 3.5 g/dL (3.2-5.5); ALBUMIN/GLOBULIN RATIO 1.2 (1.0-2.2); ALKALINE PHOSPHATASE 95 IU/L (42-121); ALT ALANINE AMINOTRANSFERASE > 5200 IU/L (10-60); AST ASPARTATE AMINOTRANSFERASE > 5200 IU/L (10-42); BILIRUBIN,TOTAL 1.9 mg/dL (0.2-1.0); BUN - BLOOD UREA NITROGEN 38 mg/dL (6-20); CALCIUM 8.5 mg/dL (8.5-10.3); CARBON DIOXIDE - CO2 23 mmol/L (21-32); CHLORIDE 104 mmol/L (101-111); CREATININE 1.6 mg/dL (0.4-1.0); GFR - MDRD 33 (>89); GLUCOSE 142 mg/dL (70-100); LIPASE 69 U/L (22-51); POTASSIUM 3.1 mmol/L (3.5-5.0); SODIUM 137 mmol/L (135-145); TOTAL PROTEIN 6.4 g/dL (6.7-8.2)
--- NOTE | 2022-04-14 13:27 | XRAY Report ---
PROCEDURE: Chest 1 View X-Ray INDICATIONS: chest pain TECHNIQUE: One view of the chest was acquired. COMPARISON: Chest x-ray 08/09/2019 FINDINGS: Surgical changes and devices: None. Lungs and pleura: No pleural effusions or pneumothorax. Lungs are clear. Mediastinum: Mediastinal contours appear normal. Heart size is normal. Bones and chest wall: No suspicious bony lesions. Overlying soft tissues appear unremarkable. IMPRESSION: No acute pulmonary process. Reviewed by: Sandra Manley MD on 04/14/2022 1:26 PM PST Approved by: Sandra Manley MD on 04/14/2022 1:26 PM [facility] Station ID: [id number]
[2022-04-14] MEDS ORDERED: POTASSIUM CHLORIDE 20 MEQ TABLET PO STA (14:08)
[2022-04-14 14:16] LABS: B. PARAPERTUSSIS- RESP PCR PAN NOT DETECTED; B. PERTUSSIS- RESP PCR PANEL NOT DETECTED; C. PNEUMONIAE- RESP PCR PANEL NOT DETECTED; CORONAVIRUS 229E-RESP PCR NOT DETECTED; CORONAVIRUS HKU1-RESP PCR NOT DETECTED; CORONAVIRUS NL63-RESP PCR NOT DETECTED; CORONAVIRUS OC43-RESP PCR NOT DETECTED; HUMAN METAPNEUMOVIRUS NOT DETECTED; INFLUENZA A- RESP PCR PANEL NOT DETECTED; INFLUENZA B - RESP PCR PANEL NOT DETECTED; M. PNEUMONIAE- RESP PCR PANEL NOT DETECTED; PARAINFLUENZA VIRUS 1 NOT DETECTED; PARAINFLUENZA VIRUS 2 NOT DETECTED; PARAINFLUENZA VIRUS 3 NOT DETECTED; PARAINFLUENZA VIRUS 4 NOT DETECTED; RHINOVIRUS/ENTEROVIRUS NOT DETECTED; RSV- RESP PCR PANEL NOT DETECTED; SARS-CoV-2 -RESP PCR PANEL NOT DETECTED
[2022-04-14 15:08] LABS: BILIRUBIN,URINE NEGATIVE (NEGATIVE); GLUCOSE, URINE (UA) NEGATIVE (NEGATIVE); KETONES,URINE (UA) TRACE mg/dL (NEGATIVE); LEUKOCYTE ESTERASE, URINE NEGATIVE (NEGATIVE); NITRITE,URINE NEGATIVE (NEGATIVE); OCCULT BLOOD,URINE SMALL (NEGATIVE); PROTEIN,URINE 100 mg/dL (NEGATIVE); UROBILINOGEN,URINE 4 E.U./dL (NORMAL)
[2022-04-14 15:09] LABS: CLARITY,URINE HAZY (CLEAR)
[2022-04-14 15:17] LABS: BACTERIA,URINE Many /HPF (None Seen); RBC,URINE 0-5 /HPF (0-5); SQUAMOUS EPITHELIAL CELL,UR MANY Squamous (<= Few)
[2022-04-14 15:18] LABS: AMORPHOUS SEDIMENT,UR Few /LPF
[2022-04-14] MEDS ORDERED: LORazepam 1 MG TABLET PO STA (16:50)
--- NOTE | 2022-04-14 17:18 | Ultrasound Report ---
PROCEDURE: Abdomen Limited INDICATIONS: elevated LFTs, vomiting TECHNIQUE: Real-time scanning was performed of the abdominal and retroperitoneal organs, with image documentatio n. COMPARISON: CT abdomen and pelvis dated 08/06/2019 FINDINGS: Liver: The liver demonstrates diffusely increased echotexture without focal abnormalities which is c onsistent with chronic hepatocellular disease/hepatic steatosis. Main portal vein demonstrates hepato pedal flow at 13.5 cm/s. Main portal vein measures 10.5 mm in size. Gallbladder: Gallbladder is normal in appearance without gallstones, gallbladder wall thickening, or pericholecystic fluid. Negative sonographic Jacques's sign. Biliary ducts: Intrahepatic bile ducts are non-dilated. Extrahepatic bile duct caliber measures 6 m m. Normal is 6-7 mm or less in diameter, or 10 mm or less post-cholecystectomy. Pancreas: Visualized portions of the pancreas are sonographically normal. Kidneys: Right kidney is normal in size and echotexture. Right kidney measures 9.7 cm long; No hydro nephrosis or nephrolithiasis. No solid masses. IVC: Intrahepatic inferior vena cava is patent. Miscellaneous: No free abdominal fluid. IMPRESSION: 1. Diffuse hepatic steatosis without evidence for hepatomegaly. 2. No acute sonographic abnormalities identified in the abdomen. Preliminary findings were reported to Dr. Reece at 1600 hours by the sample paster. Reviewed by: Martin Gregorio MD on 04/14/2022 5:17 PM PST Approved by: Martin Gregorio MD on 04/14/2022 5:17 PM PST Station ID: [id number]
[2022-04-14 17:50] VITALS: BP 159/93
[2022-04-16 01:07] LABS: HBsAG SCREEN Negative (Negative); HCV AB Non Reactive (Non Reactive); HEPATITIS B CORE IGM AB Negative (Negative)
== END 2022-04-14 17:35 | disposition home or self-care (01) ==
LOC: ED 12:06
DX: B34.9 Viral infection, unspecified (principal); K76.0 Fatty (change of) liver, not elsewhere classified; R74.01 Elevation of levels of liver transaminase levels; F17.200 Nicotine dependence, unspecified, uncomplicated; Z20.822 Contact with and (suspected) exposure to COVID-19
CPT/HCPCS: 36415; 71045; 76705; 80053; 80320; 81001; 83690; 85025; 86705; 86709; 86803; 87340; 87633; 96361; 96374; 99284; A9270; J8499; 81003; 87086

== ENCOUNTER 2022-08-11 08:55 | Outpatient (CLI) | payer OTHER ==
[2022-08-11 14:49] LABS: BASOPHILS % (AUTO) 0.7 %; EOSINOPHILS # (AUTO) 0.3 10^3/uL (0.0-0.7); EOSINOPHILS % (AUTO) 4.9 %; HCT - HEMATOCRIT 39.5 % (37.0-47.0); HGB - HEMOGLOBIN 13.2 g/dL (12.0-16.0); LYMPHOCYTES # (AUTO) 2.5 10^3/uL (1.5-3.5); MEAN CORPUSCULAR HGB CONC 33.4 g/dL (32.0-36.0); MEAN CORPUSCULAR VOLUME 95.6 fL (81.0-99.0); MEAN PLATELET VOLUME 10.3 fL (7.9-10.8); MONOCYTES # (AUTO) 0.5 10^3/uL (0.0-1.0); MONOCYTES % (AUTO) 7.6 %; NEUTROPHILS # (AUTO) 2.6 10^3/uL (1.5-6.6); NEUTROPHILS % (AUTO) 44.6 %; PLT - PLATELET COUNT 226 10^3/uL (130-450); RED BLOOD COUNT 4.13 10^6/uL (4.20-5.40); RED CELL DISTRIBUTION WIDTH 12.1 % (12.0-15.0); WHITE BLOOD COUNT 5.9 x10^3/uL (4.8-10.8)
[2022-08-11 15:31] LABS: ALBUMIN/GLOBULIN RATIO 1.3 (1.0-2.2); ALKALINE PHOSPHATASE 81 IU/L (42-121); ALT ALANINE AMINOTRANSFERASE 145 IU/L (10-60); AST ASPARTATE AMINOTRANSFERASE 72 IU/L (10-42); BILIRUBIN,TOTAL 0.5 mg/dL (0.2-1.0); BUN - BLOOD UREA NITROGEN 30 mg/dL (6-20); CARBON DIOXIDE - CO2 32 mmol/L (21-32); CHLORIDE 104 mmol/L (101-111); CHOLESTEROL 195 mg/dL; CREATININE 0.8 mg/dL (0.4-1.0); GFR - MDRD 73 (>89); GLUCOSE 109 mg/dL (70-100); HDL CHOLESTEROL 64 mg/dL; LDL CHOLESTEROL,CALCULATED 97 mg/dL; LDL/HDL RATIO 1.5 (<4.4); POTASSIUM 4.4 mmol/L (3.5-5.0); SODIUM 141 mmol/L (135-145); TRIGLYCERIDES 170 mg/dL; VLDL CHOLESTEROL 34 mg/dL
[2022-08-11 15:45] LABS: THYROID STIMULATING HORMONE 1.82 uIU/mL (0.34-5.60)
== END 2022-08-11 08:56 | disposition home or self-care (01) ==
LOC: LAB.S 08:55
PROVIDERS: ATTEND Internal Medicine
DX: I10 Essential (primary) hypertension (principal); Z13.9 Encounter for screening, unspecified
CPT/HCPCS: 36415; 80053; 80061; 83721; 84443; 85025

== ENCOUNTER 2022-09-29 08:04 | Outpatient (CLI) | payer OTHER ==
[2022-09-29 15:54] LABS: ALBUMIN 4.2 g/dL (3.2-5.5)
[2022-09-29 16:29] LABS: ALBUMIN/GLOBULIN RATIO 1.4 (1.0-2.2); BILIRUBIN,TOTAL 0.4 mg/dL (0.2-1.0); CALCIUM 9.7 mg/dL (8.5-10.3); CREATININE 0.7 mg/dL (0.6-1.3); POTASSIUM 4.2 mmol/L (3.5-4.5); TOTAL PROTEIN 7.1 g/dL (6.4-8.9)
[2022-09-29 20:50] LABS: ESTIMATED AVERAGE GLUCOSE 105 mg/dL (70-100); HEMOGLOBIN A1c% 5.3 % (4.27-6.07)
== END 2022-09-29 08:05 | disposition home or self-care (01) ==
LOC: LAB.S 08:04
PROVIDERS: ATTEND Internal Medicine
DX: I10 Essential (primary) hypertension (principal); Z79.899 Other long term (current) drug therapy; E53.9 Vitamin B deficiency, unspecified
CPT/HCPCS: 36415; 80053; 82607; 83036; 83921

== ENCOUNTER 2022-10-21 12:55 | Outpatient (CLI) | payer OTHER ==
--- NOTE | 2022-10-22 09:42 | Mammography Report ---
BILATERAL DIGITAL SCREENING MAMMOGRAM 3D/2D WITH AUGMENTATION: 10/21/2022 CLINICAL: Routine screening. Comparison is made to exams dated: 10/09/2018 breast MRI - [facility], 03/17/2018 mammogram - [facility], 09/07/2016 mammogram, and 06/06/2014 mammogram - Located within [facility]. Both breasts are heterogeneously dense, which may obscure small masses (category c / 51-75% glandular tissue). There is a new 1.6 cm oval high density asymmetry in the left breast posterior depth superior region seen on the mediolateral oblique view only. No other significant masses, calcifications, or other findings are seen in either breast. Bilateral breast implants are in place. IMPRESSION: INCOMPLETE: NEEDS ADDITIONAL IMAGING EVALUATION The new 1.6 cm oval high density asymmetry in the left breast is indeterminate. Exaggerated CC views as well as additional views with possible ultrasound are recommended. Based on Tyrer-Cuzick model (a risk assessment model), the patient's lifetime risk is 50.6% and her 1 0 year risk is 26.0%. If a patient has an elevated risk, a more comprehensive evaluation should be co nsidered and/or a referral to a genetic counselor. The [place] [employer], [place] [employer], and NCCN Guidelines advise the consideration of Breast MRI as an adjunct to screening mammo graphy in patients whose "Lifetime risk to develop breast cancer" is 20% or higher. This exam was interpreted at Station ID: [id number]. NOTE: For mammograms, a report in lay terms will be sent to the patient. Approximately 15% of breast malignancies will not be visualized mammographically. In the management of a palpable breast mass, a negative mammogram must not discourage biopsy of a clinically suspicious lesion. Electronically Signed By: Martin Gregorio M.D. aty/:10/21/2022 20:38:15 ACR BI-RADS Category 0: Incomplete 3340F PARENCHYMAL PATTERN: (D) - The breast(s) demonstrate(s) heterogeneously dense fibroglandular parenchy ma. BI-RADS CATEGORY: (0) - 0 Mammo and [place] [id number] Immediate follow-up LATERALITY: (L)
== END 2022-10-21 12:56 | disposition home or self-care (01) ==
LOC: DI 12:55
DX: Z12.31 Encounter for screening mammogram for malignant neoplasm of breast (principal); R92.8 Other abnormal and inconclusive findings on diagnostic imaging of breast

== ENCOUNTER 2022-12-02 08:59 | Outpatient (CLI) | payer OTHER ==
--- NOTE | 2022-12-02 13:24 | Ultrasound Report ---
LIMITED ULTRASOUND OF LEFT BREAST AND AXILLA: 12/02/2022 CLINICAL: Patient returns today to evaluate a focal asymmetry in the left breast. Palpable left breas t lump. Comparison is made to exams dated: 10/21/2022 mammogram - [facility], 10/09/2018 jose ast MRI - [facility], and 03/17/2018 mammogram - [facility]. Color flow ultrasound of the left breast 2-3 o'clock, and axilla regions was performed. Gómez scale images of the real-time examination were reviewed. There is a 1.3 cm x 0.8 cm x 1.2 cm wider than tall oval mass in the left breast at 2 o'clock posteri or depth 11 cm from the nipple. This oval mass is hypoechoic. This correlates with mammography find ings. There are related calcifications. Color flow imaging demonstrates that there is vascularity p resent. No significant abnormalities were seen sonographically in the left axilla. IMPRESSION: SUSPICIOUS OF MALIGNANCY The 1.3 cm x 0.8 cm x 1.2 cm wider than tall oval mass in the left breast is suspicious of malignancy . An ultrasound guided biopsy is recommended. No sonographic abnormalities identified in the axilla. No axillary adenopathy. Findings and recommendations were discussed with the patient by Dr. Jonas during today's examina tion. This exam was interpreted at Station ID: [id number]. Electronically Signed By: Martin Gregorio M.D. aty/:12/02/2022 10:37:54 Ultrasound BI-RADS: 4 Suspicious for malignancy BI-RADS CATEGORY: (4) - 4 Biopsy [id number] Immediate follow-up LATERALITY: (L)
--- NOTE | 2022-12-02 13:24 | Mammography Report ---
UNILATERAL LEFT DIGITAL DIAGNOSTIC MAMMOGRAM 3D/2D WITH EXAGGERATED CC MEDIOLATERAL OBLIQUE SPOT COMP RESSION WITH AUGMENTATION: 12/02/2022 CLINICAL: Patient returns today to evaluate a focal asymmetry in the left breast. Comparison is made to exams dated: 10/21/2022 mammogram - [facility], 03/17/2018 mike mogram - [facility], 09/07/2016 mammogram, 06/06/2014 mammogram, and 2012 mammogram - [facility]. The left breast is heterogeneously dense, which may obscure small masses (category c / 51-75% glandul ar tissue). There is a new 1.3 cm oval high density mass in the left breast at 2 o'clock posterior depth. This i s seen in additional views. No other significant masses or calcifications are seen in the breast. IMPRESSION: INCOMPLETE: NEEDS ADDITIONAL IMAGING EVALUATION The new 1.3 cm oval high density mass in the left breast is indeterminate. An ultrasound is recommen ded for further evaluation and is scheduled to immediately follow this examination. The left implant has a stable appearance. Based on Tyrer-Cuzick model (a risk assessment model), the patient's lifetime risk is 50.6% and her 1 0 year risk is 26.0%. If a patient has an elevated risk, a more comprehensive evaluation should be co nsidered and/or a referral to a genetic counselor. The [place] [employer], [place] [employer], and NCCN Guidelines advise the consideration of Breast MRI as an adjunct to screening mammo graphy in patients whose "Lifetime risk to develop breast cancer" is 20% or higher. This exam was interpreted at Station ID: [id number]. NOTE: For mammograms, a report in lay terms will be sent to the patient. Approximately 15% of breast malignancies will not be visualized mammographically. In the management of a palpable breast mass, a negative mammogram must not discourage biopsy of a clinically suspicious lesion. Electronically Signed By: Martin Gregorio M.D. aty/:12/02/2022 10:33:07 ACR BI-RADS Category 0: Incomplete 3340F PARENCHYMAL PATTERN: (D) - The breast(s) demonstrate(s) heterogeneously dense fibroglandular soledad jackson. BI-RADS CATEGORY: (0) - 0 Ultrasound [id number] Immediate follow-up LATERALITY: (L)
== END 2022-12-02 09:00 | disposition home or self-care (01) ==
LOC: DI 08:59
PROVIDERS: ATTEND Internal Medicine
DX: N63.21 Unspecified lump in the left breast, upper outer quadrant (principal)

== ENCOUNTER 2022-12-14 13:39 | Outpatient (CLI) | payer OTHER ==
[2022-12-14] MEDS ORDERED: LIDOCAINE 1%-EPI 1:100000 50 ML VIAL ONE (13:57)
[2022-12-14] MEDS ORDERED: LIDOCAINE-MPF 1% 5 ML VIAL ONE (13:57)
[2022-12-14] MEDS: LIDOCAINE-MPF 1% 5 ML VIAL TD ONE (17:23)
[2022-12-14] MEDS ORDERED: LIDOCAINE 1%-EPI 1:100000 50 ML VIAL IM ONE (18:00)
[2022-12-14] MEDS ORDERED: LIDOCAINE 1%-EPI 1:100000 50 ML VIAL TD ONE (18:00)
--- NOTE | 2022-12-15 13:06 | Mammography Report ---
UNILATERAL LEFT DIGITAL DIAGNOSTIC MAMMOGRAM POST-PROCEDURE IMAGING FOR MARKER PLACEMENT WITH AUGMENT ATION: 12/14/2022 CLINICAL: Post left breast ultrasound biopsy clip placement imaging. Comparison is made to exams dated: 12/02/2022 mammogram and 10/21/2022 mammogram - [facility]. The left breast is heterogeneously dense, which may obscure small masses (category c / 51-75% glandul ar tissue). There is a marker clip in the appropriate position in the left breast at 2 o'clock posterior depth. This marker clip placement is at the biopsy site. IMPRESSION: POST PROCEDURE MAMMOGRAM FOR MARKER PLACEMENT There was a successful marker clip placement in the left breast posterior depth. Based on Tyrer-Cuzick model (a risk assessment model), the patient's lifetime risk is 50.6% and her 1 0 year risk is 26.0%. If a patient has an elevated risk, a more comprehensive evaluation should be co nsidered and/or a referral to a genetic counselor. The [place] [employer], [place] [employer], and NCCN Guidelines advise the consideration of Breast MRI as an adjunct to screening mammo graphy in patients whose "Lifetime risk to develop breast cancer" is 20% or higher. This exam was interpreted at Station ID: [id number]. NOTE: For mammograms, a report in lay terms will be sent to the patient. Approximately 15% of breast malignancies will not be visualized mammographically. In the management of a palpable breast mass, a negative mammogram must not discourage biopsy of a clinically suspicious lesion. Electronically Signed By: Rey jasso/rupal:12/14/2022 17:06:14 ACR BI-RADS Category Post-procedure mammogram for marker placement PARENCHYMAL PATTERN: (D) - The breast(s) demonstrate(s) heterogeneously dense fibroglandular parsaray ma. BI-RADS CATEGORY: () - Unspecified - other recall n/a LATERALITY: (B)
--- NOTE | 2022-12-17 13:40 | Ultrasound Report ---
ULTRASOUND GUIDED BIOPSY LEFT BREAST WITH MARKING DEVICE INSERTED AND POST DIGITAL MAMMOGRAPHIC IMAGI N12/14/2022 CLINICAL: Left breast mass. PATIENT CONSENT: Risks (minor bleeding, infection, vasovagal reaction and repeat procedure), benefits and alternatives were explained to the patient and written informed consent was obtained. Correlation is made to exams dated: 12/02/2022 ultrasound, 12/02/2022 mammogram, and 10/21/[address] [facility]. An ultrasound guided biopsy using real-time ultrasound was performed for the nodule located in the le ft breast at 2 o'clock anterior depth. This was described on the previous ultrasound report. The sk in was prepped in the usual manner. Local anesthetic was administered to the access site. A small i ncision was made in the breast. The abnormality was approached from the lateral aspect. A biopsy ne edle was placed adjacent to the abnormality under ultrasound guidance. Once the needle was documente d to be in the correct location, three specimens were obtained using a BARD biopsy device. A clip wa s inserted into the biopsy cavity. A skin adhesive was applied to the access site. Post procedure d igital mammographic imaging was obtained. The specimens were sent to the laboratory for pathological analysis. IMPRESSION: ULTRASOUND GUIDED BIOPSY MALIGNANT Ultrasound guided biopsy of the nodule in the left breast at 2 o'clock anterior depth was successful with no apparent post procedure complications. Pathology indicates malignant ductal carcinoma in sit u (DCIS). Pathology results are concordant with imaging findings. A surgical/oncologic consultation is recommended. This exam was interpreted at Station ID: [id number]. Rey Gregorio M.D. jl,aty/:12/16/2022 18:47:30 BI-RADS CATEGORY: () - Unspecified - other recall n/a LATERALITY: (B)
== END 2022-12-14 13:40 | disposition home or self-care (01) ==
LOC: DI 13:39
PROVIDERS: ATTEND Internal Medicine
DX: D05.12 Intraductal carcinoma in situ of left breast (principal)
CPT/HCPCS: 19083

== ENCOUNTER 2023-07-09 08:04 | Emergency (ER) | payer OTHER ==
[2023-07-09 08:25] VITALS: O2SAT 96
--- NOTE | 2023-07-09 08:53 | ED Physician Documentation ---
PD HPI NVD - Stated complaint Stated Complaint: VOMIT,UNWELL - Chief complaint Chief Complaint: Abd Pain - History obtained from History obtained from: Patient - History of Present Illness Timing - onset: Last night (has had some epigastric discomfort and nausea for past few weeks, since breast implant surgery. Less appetitie. However, onset of vomiting with loose stools last night, with initial clear emesis and then appeared yellowish (bilious) this morning. No hematemesis. Tried Pepto without improvement.) Timing - details: Gradual onset, Still present Associated symptoms: Abdominal pain (epigastric), Melena (this morning), Loss of appetite. No: Hematemesis, Hematochezia Contributing factors: Other (taking lots of NSAIDs for pain the past several weeks. Less PO intake the past week or so. Pain from breast implant surgery.). No: Sick contact, Bad food, Recent antibiotics Improved by: No: Eating, Vomiting Worsened by: Eating Recently seen: Surgery (breast implants with prior double mastectomy.) Review of Systems Constitutional: denies: Fever, Chills PD PAST MEDICAL HISTORY - Past Medical History Past Medical History: Yes Cardiovascular: Hypertension Respiratory: Asthma GI: None Psych: Depression, Anxiety Musculoskeletal: Chronic back pain, Other - Past Surgical History Past Surgical History: Yes General: Other Ortho: Other /[employer]IVER: Tubal ligation, 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, Mastectomy, Breast implants Neuro: Other - Present Medications Home Medications: Ambulatory Orders Medication Instructions Recorded Confirmed Alprazolam [Xanax] 0.5 - 1 mg PO BID PRN 08/06/19 07/05/21 QUEtiapine [SEROquel] 300 mg PO QPM 08/06/19 07/05/21 Venlafaxine ER [Effexor ER] 3 cap PO DAILY 08/06/19 07/05/21 Amox/Clav 875/125 [Augmentin] 1 each PO Q12H #7 tablet 07/05/21 Losartan/Hydrochlorothiazide 1 tab PO DAILY 07/05/21 07/05/21 [Losartan-Hctz 100-12.5 mg Tab] HYDROcod/ACETAM 5/325 [Billings 5/325] 1 - 2 tab PO Q6H PRN #15 tablet 08/28/21 Ondansetron Odt [Zofran] 4 mg TL Q6H PRN #10 tablet 04/14/22 HYDROcod/ACETAM 5/325 [Billings 5/325] 1 ea PO Q6H PRN #18 tablet 07/09/23 Lidocaine Viscous 2% [Xylocaine 5 ml PO Q4H PRN #100 ml 07/09/23 Viscous 2%] Ondansetron Odt [Zofran] 4 mg TL Q6H PRN #10 tablet 07/09/23 Pantoprazole [Protonix] 40 mg PO DAILY 30 Days #30 tablet 07/09/23 Sucralfate [Carafate] 1 gm PO ACHS 10 Days #400 ml 07/09/23 - Allergies Allergies/Adverse Reactions: Allergies Allergy/AdvReac Type Severity Reaction Status Date / Time No Known Drug Allergies Allergy Verified 07/09/23 08:18 - Social History Does the pt smoke?: No Smoking Status: Never smoker Does the pt drink ETOH?: No Does the pt have substance abuse?: No - Immunizations Immunizations are current?: Yes - POLST Patient has POLST: No PD ED PE NORMAL - Vitals Vital signs reviewed: Yes - General General: Alert and oriented X 3, Well developed/nourished, Other (appears in pain on initial exam. ) - Neck Neck: Supple, no meningeal sign, No adenopathy - Cardiac Cardiac: RRR, No murmur - Respiratory Respiratory: No respiratory distress, Clear bilaterally - Abdomen Abdomen: Normal bowel sounds, Soft, Non distended, No organomegaly, Other (tender epigastric with some local guarding, but no percussion nor rebound tenderness. ) - Derm Derm: Normal color, Warm and dry - Neuro Neuro: Alert and oriented X 3 Results - Vitals Vitals: Oxygen O2 Source Room air - Labs Labs: Microbiology 07/09/23 09:28 Occult Blood - Final Stool Laboratory Tests 07/09/23 07/09/23 07/09/23 09:28 09:31 09:31 WBC 6.6 RBC 4.01 L Hgb 12.5 Hct 37.6 MCV 93.8 MCH 31.2 H MCHC 33.2 RDW 12.3 Plt Count 273 MPV 9.4 Neut # (Auto) 3.4 Lymph # (Auto) 2.3 Carlisle # (Auto) 0.5 Eos # (Auto) 0.2 Baso # (Auto) 0.1 Absolute Nucleated RBC 0.00 Nucleated RBC % 0.0 Sodium 136 Potassium 3.8 Chloride 103 Carbon Dioxide 26 Anion Gap 7.0 BUN 22 H Creatinine 1.1 Estimated GFR (MDRD) 50 L Glucose 85 Calcium 9.4 Magnesium 1.3 L Total Bilirubin 0.4 AST 23 ALT 59 Alkaline Phosphatase 75 Total Protein 6.2 L Albumin 4.0 Globulin 2.2 Albumin/Globulin Ratio 1.8 Lipase 31 Stool H. pylori Ag NEGATIVE PD Medical Decision Making - ED course Complexity details: re-evaluated patient (pain is significantly improved with IV fluids, meds here. ), considered differential, d/w patient Reviewed Lab Results: has had some epigastric pains for awhile but worse the past days/week or so. Had vomiting overnight with bilious color. No noted hematemeisis. Has had dark/black stools the past day or two, but had taken PeptoBismol for her stomach. No general abd pain, but mainly epigastric. Has been taking lots of NSAIDs for breast pain prior to surgery (due to pain of the inflators in the area) and since surgery. No history of ulcers. Her HGB is okay with only mild anemia. Stool sample was negative for H Pylori. It was positive for guaiac, so even though some of the dark stool may be Pepto, there is some upper GI bleeding. I presume gastritis/ulcer from multiple factors, but including NSAID use, less PO intake the past week, and the stress of surgery. She had had breast implants placed with spacer prior to that. No muscle flaps nor intra-peritoneal access for the surgery. Labs for lipase and LFTs are normal. Discussed but I do not see indication for CT imaging. Labwork was sufficient. Ab wounds do not show signs of infection where implants were inserted. Departure - Departure Disposition: 01 Home, Self Care Clinical Impression: Hypomagnesemia Nausea & vomiting Qualifiers: Vomiting type: bilious vomiting Qualified Code(s): R11.14 - Bilious vomiting Gastritis, acute Qualifiers: Gastritis type: other gastritis Gastritis bleeding: with bleeding Qualified Code(s): K29.01 - Acute gastritis with bleeding Condition: Stable Record reviewed to determine appropriate education?: Yes Instructions: ED PUD Vs Gastritis Follow-Up: Karla Jacques MD [Primary Care Provider] - Medicine [Provider Group] Milady Eddy DNP, [employer], PMHNP [Credentialed Staff Provider] - Prescriptions: Sucralfate [Carafate] 1 gm PO ACHS 10 Days #400 ml HYDROcod/ACETAM 5/325 [Billings 5/325] 1 ea PO Q6H PRN #18 tablet PRN Reason: Pain Pantoprazole [Protonix] 40 mg PO DAILY 30 Days #30 tablet Lidocaine Viscous 2% [Xylocaine Viscous 2%] 5 ml PO Q4H PRN #100 ml PRN Reason: Pain Ondansetron Odt [Zofran] 4 mg TL Q6H PRN #10 tablet PRN Reason: Nausea / Vomiting Comments: Your symptoms sound very much like an irritation of the stomach, be at more generalized gastritis or a localized area (ulcer). You have been on omeprazole for a while so we can try swapping to pantoprazole and see if it hits the receptors better for the acid reduction. However likely is the added irritations that have occurred with the surgery and less appetite and also the NSAID use for the pain. Try to have small frequent foods to buffer the stomach acids and help coat the stomach. Additionally use sacral fate/Carafate 4 times daily for the next several days to week to help coat it often as well. In addition you can use antacids such as Tums or Maalox or Mylanta. If needed you can add lidocaine to that to help with a numbing effect for the stomach to decrease discomfort. Ondansetron as needed for nausea. Your stool test did show presence of some blood in the stool. Likely the dark color of your stool may be augmented by the Pepto-Bismol which we will do that a s well. However there is some bleeding from the stomach and you would want to be more aware of persistence of the dark color so avoid any Pepto-Bismol for now. Also avoid NSAIDs. Continue with Tylenol 500 to 650 mg 4 times daily regularly for pain and also add to that then hydrocodone/acetaminophen if needed for worse pain. The opiates can have a sedating effect and also constipating but at this point would be preferable substitute for the NSAIDs to allow better healing of your gastritis. Follow-up with your primary care or [facility] this coming week for repeat blood count to make sure you are blood count is holding well. You are not anemic at this point so you have "room to spare" if there is still some mild ongoing blood loss until the gastritis is healing. Talk with your primary care or [facility] oncology. You have the upcoming colonoscopy and given the new idea of gastritis versus ulcer, there may want to do a upper endoscopy at the same time. We did do a test on your stool for the presence of a germ called helicobacter pylori and that was negative. You can pass that info to your primary care and [facility] oncology as that would be something there is likely test for. I sent your prescriptions to your preferred pharmacy. Return as needed. Forms: PCP List Discharge Date/Time: 07/09/23 12:52
[2023-07-09 09:36] LABS: BASOPHILS # (AUTO) 0.1 10^3/uL (0.0-0.1); BASOPHILS % (AUTO) 0.8 %; EOSINOPHILS # (AUTO) 0.2 10^3/uL (0.0-0.7); EOSINOPHILS % (AUTO) 3.4 %; HCT - HEMATOCRIT 37.6 % (37.0-47.0); HGB - HEMOGLOBIN 12.5 g/dL (12.0-16.0); LYMPHOCYTES # (AUTO) 2.3 10^3/uL (1.5-3.5); LYMPHOCYTES % (AUTO) 35.7 %; MEAN CORPUSCULAR HEMOGLOBIN 31.2 pg (27.0-31.0); MEAN CORPUSCULAR HGB CONC 33.2 g/dL (32.0-36.0); MEAN CORPUSCULAR VOLUME 93.8 fL (81.0-99.0); MEAN PLATELET VOLUME 9.4 fL (7.9-10.8); MONOCYTES # (AUTO) 0.5 10^3/uL (0.0-1.0); MONOCYTES % (AUTO) 8.1 %; NEUTROPHILS # (AUTO) 3.4 10^3/uL (1.5-6.6); NEUTROPHILS % (AUTO) 51.8 %; PLT - PLATELET COUNT 273 10^3/uL (130-450); RED BLOOD COUNT 4.01 10^6/uL (4.20-5.40); RED CELL DISTRIBUTION WIDTH 12.3 % (12.0-15.0); WHITE BLOOD COUNT 6.6 x10^3/uL (4.8-10.8)
[2023-07-09] MEDS: ONDANSETRON 4 MG/2 ML VIAL IVP STA (09:37)
[2023-07-09] MEDS: FAMOTIDINE 20 MG/2 ML VIAL IVP STA (09:37)
[2023-07-09] MEDS: HYDROmorphone 0.5 MG/0.5 ML SYRINGE IVP STA (09:38)
[2023-07-09] MEDS: SODIUM CHLORIDE 0.9% 1,000 ML IV STA (09:38)
[2023-07-09] MEDS: PANTOPRAZOLE 40 MG VIAL IVP STA (09:38)
[2023-07-09 09:44] LABS: MAGNESIUM 1.3 mg/dL (1.7-2.3)
[2023-07-09 09:50] LABS: ALBUMIN/GLOBULIN RATIO 1.8 (1.0-2.2); BILIRUBIN,TOTAL 0.4 mg/dL (0.2-1.0); CALCIUM 9.4 mg/dL (8.5-10.3); CREATININE 1.1 mg/dL (0.6-1.3); POTASSIUM 3.8 mmol/L (3.5-4.5); TOTAL PROTEIN 6.2 g/dL (6.4-8.9)
[2023-07-09 09:52] LABS: H. PYLORIS ANTIGEN STL NEGATIVE (Negative)
[2023-07-09] MEDS: MAGNESIUM SULFATE 2 GRAM 2 GM/50 ML BAG IV ONE (11:32)
[2023-07-09 12:05] VITALS: BP 146/78
[2023-07-09] MEDS: SUCRALFATE 1 GM/10 ML UDC PO STA (12:08)
== END 2023-07-09 12:52 | disposition home or self-care (01) ==
LOC: ED 08:04
DX: K29.01 Acute gastritis with bleeding (principal); E83.42 Hypomagnesemia; Z90.13 Acquired absence of bilateral breasts and nipples; Z98.82 Breast implant status
CPT/HCPCS: 36415; 80053; 82272; 83690; 83735; 85025; 87338; 96365; 96375; 99284; 99285; A9270; J1170

== ENCOUNTER 2023-09-23 08:00 | Outpatient (CLI) | payer OTHER | END 2023-09-23 23:59 | disposition home or self-care (01) | LOC: LAB.N 08:00 | PROVIDERS: ATTEND Registered Nurse | DX: R73.03 Prediabetes (principal); R82.79 Other abnormal findings on microbiological examination of urine; R30.0 Dysuria | CPT/HCPCS: 87086 ==

== ENCOUNTER 2023-10-25 11:01 | Outpatient (CLI) | payer OTHER ==
[2023-10-25 11:14] LABS: BASOPHILS % (AUTO) 0.7 %; EOSINOPHILS # (AUTO) 0.2 10^3/uL (0.0-0.7); HCT - HEMATOCRIT 40.6 % (37.0-47.0); HGB - HEMOGLOBIN 13.5 g/dL (12.0-16.0); LYMPHOCYTES # (AUTO) 2.2 10^3/uL (1.5-3.5); LYMPHOCYTES % (AUTO) 38.7 %; MEAN CORPUSCULAR HEMOGLOBIN 30.3 pg (27.0-31.0); MEAN CORPUSCULAR HGB CONC 33.3 g/dL (32.0-36.0); MEAN PLATELET VOLUME 9.2 fL (7.9-10.8); MONOCYTES # (AUTO) 0.5 10^3/uL (0.0-1.0); NEUTROPHILS # (AUTO) 2.7 10^3/uL (1.5-6.6); NEUTROPHILS % (AUTO) 48.4 %; PLT - PLATELET COUNT 258 10^3/uL (130-450); RED BLOOD COUNT 4.46 10^6/uL (4.20-5.40); RED CELL DISTRIBUTION WIDTH 13.2 % (12.0-15.0); WHITE BLOOD COUNT 5.7 x10^3/uL (4.8-10.8)
[2023-10-25 11:25] LABS: PARTIAL THROMBOPLASTIN TIME 31.1 secs (24.9-33.3)
[2023-10-25 11:30] LABS: INR 1.1 (0.8-1.2); PT - PROTHROMBIN TIME 12.1 secs (9.9-12.6)
[2023-10-25 11:48] LABS: ALBUMIN 4.4 g/dL (3.2-5.5); ALBUMIN/GLOBULIN RATIO 1.6 (1.0-2.2); ALKALINE PHOSPHATASE 66 IU/L (42-121); ALT ALANINE AMINOTRANSFERASE 40 IU/L (10-60); AST ASPARTATE AMINOTRANSFERASE 26 IU/L (10-42); BILIRUBIN,TOTAL 0.4 mg/dL (0.2-1.0); BUN - BLOOD UREA NITROGEN 25 mg/dL (6-20); CALCIUM 9.5 mg/dL (8.5-10.3); CARBON DIOXIDE - CO2 29 mmol/L (21-32); CHLORIDE 102 mmol/L (101-111); CREATININE 0.8 mg/dL (0.6-1.3); CRP - C-REACTIVE PROTEIN < 0.5 mg/dL (<0.5); GFR - MDRD 72 (>89); GLUCOSE 94 mg/dL (74-104); POTASSIUM 4.5 mmol/L (3.5-4.5); SODIUM 135 mmol/L (135-145); TOTAL PROTEIN 7.2 g/dL (6.4-8.9)
== END 2023-10-25 11:02 | disposition home or self-care (01) ==
LOC: LAB 11:01
PROVIDERS: ATTEND Registered Nurse
DX: R21 Rash and other nonspecific skin eruption (principal); Z79.60 Long term (current) use of unspecified immunomodulators and immunosuppressants; R25.1 Tremor, unspecified; R73.03 Prediabetes
CPT/HCPCS: 36415; 80053; 85025; 85610; 85651; 85730; 86140; 86787